=== PATIENT | female | born 1950 | race Caucasian/White ===

== ENCOUNTER → 2017-12-02 08:47 | Outpatient (CLI) | payer MEDICARE, OTHER, SELFPAY ==
--- NOTE | 2017-12-02 08:49 | DI.RAD.S_ITS ---
PROCEDURE: XR FOOT RT MIN 3V INDICATIONS: pain in right foot TECHNIQUE: 3 views of the foot were acquired. COMPARISON: None. FINDINGS: Bones: Slightly impacted, probable articulating fracture in the head of the fourth proximal phalanx. No suspicious bony lesions. Early marginal spurring at the head of the first metatarsal. Soft tissues: No tibiotalar joint effusion. Achilles tendon appears normal. IMPRESSION: Fracture fourth proximal phalanx likely articulating with the PIP joint Dictated by: Miguel Espino M.D. on 12/02/2017 at 9:17 Approved by: Miguel Espino M.D. on 12/02/2017 at 9:21
== END ==
PROVIDERS: Visit Provider Physician Assistant
DX: S92.511A Displaced fracture of proximal phalanx of right lesser toe(s), initial encounter for closed fracture (principal); M79.671 Pain in right foot
CPT/HCPCS: 73630

== ENCOUNTER → 2019-03-22 10:49 | Outpatient (CLI) | payer MEDICARE, OTHER, SELFPAY ==
[2019-03-22 12:39] LABS: Thyroid Stimulating Hormone 1.35 uIU/mL (0.47-4.68)
== END ==
PROVIDERS: PCP Family Medicine; Visit Provider Family Medicine
DX: E03.9 Hypothyroidism, unspecified (principal)
CPT/HCPCS: 36415; 84443

== ENCOUNTER → 2019-12-20 12:10 | Outpatient (CLI) | payer MEDICARE, OTHER, SELFPAY ==
[2019-12-20 12:18] LABS: Bacteria Urine None Seen; RBC Urine None Seen (0-5/HPF)
[2019-12-20 12:57] LABS: Appearance Urine UA CLEAR; Bilirubin Urine UA NEGATIVE (NEGATIVE); Color Urine UA YELLOW; Glucose Urine UA NEGATIVE (Negative); Ketones Urine UA NEGATIVE (NEGATIVE); Leukocyte Esterase Urine UA NEGATIVE (NEGATIVE); Nitrite Urine UA NEGATIVE (Negative); Occult Blood Urine UA NEGATIVE (Negative); Protein Urine UA NEGATIVE (Negative); Specific Gravity Urine UA <=1.005 (1.000-1.035); Urobilinogen Urine UA 0.2 E.U./dL (0.2)
[2019-12-20 13:05] LABS: Culture Indicated Urine Cult Not Indicated; Squamous Epithelial Cell Urine 0-1 /HPF (0-5/HPF); WBC Urine 0-1/HPF (0-5/HPF)
== END ==
PROVIDERS: PCP Family Medicine; Referring Provider Family Medicine; Visit Provider Family Medicine
DX: R31.9 Hematuria, unspecified (principal)
CPT/HCPCS: 81001

== ENCOUNTER → 2020-01-25 10:25 | Outpatient (CLI) | payer MEDICARE, OTHER, SELFPAY ==
[2020-01-25 11:26] LABS: Add Manual Diff / Slide Review NO; Basophils Absolute Auto 0 /uL (0-100); Basophils Percent Auto 1.3 % (0-2); Eosinophils Absolute Auto 100 /uL (0-450); Eosinophils Percent Auto 2.7 % (2-4); Hematocrit 35.4 % (36-46); Hemoglobin 11.8 g/dL (12.0-16.0); Lymphocytes Absolute Auto 1400 /uL (1100-4500); Lymphocytes Percent Auto 45.3 % (25-40); Mean Corpuscular HGB Conc 33.3 % (30-36); Mean Corpuscular Hemoglobin 29.1 PG (26-34); Mean Corpuscular Volume 87.4 fL (80-100); Monocytes Absolute Auto 300 /uL (0-900); Monocytes Percent Auto 9.6 % (3-14); Neutrophils Absolute Auto 1300 /uL (1500-7000); Neutrophils Percent Auto 41.1 % (50-75); Platelet Count 182 X10^3/uL (150-400); Red Blood Cell Count 4.05 X10^6/uL (4.0-5.2); Red Cell Distribution Width 13.7 % (11.6-14.8); White Blood Cell Count 3.1 X10^3/uL (4.5-11.0)
[2020-01-25 11:51] LABS: Alanine Aminotransferase 15 IU/L (<35); Albumin 4.5 g/dL (3.5-5.0); Albumin Globulin Ratio 1.3 (1.0-2.8); Alkaline Phosphatase 69 U/L (38-126); Aspartate Aminotransferase 29 IU/L (14-36); BUN Creatinine Ratio 21.9 (6-22); Bilirubin Total 0.3 mg/dL (0.2-1.3); Blood Urea Nitrogen 14 mg/dL (7-17); Calcium 9.4 mg/dL (8.4-10.2); Carbon Dioxide 32 mmol/L (22-32); Chloride 103 mmol/L (98-107); Estimated Glomerular Filt Rate > 60.0 mL/min (>60); Globulin 3.5 g/dL (1.7-4.1); Glucose 86 mg/dL (80-110); HEMOLYSIS < 15 (0-50); Potassium 4.2 mmol/L (3.4-5.1); Sodium 140 mmol/L (137-145)
[2020-01-25 14:02] LABS: TSH w/ Reflex to FT4 1.23 uIU/mL (0.47-4.68)
== END ==
PROVIDERS: PCP Family Medicine; Referring Provider Family Medicine; Visit Provider Family Medicine
DX: R10.2 Pelvic and perineal pain (principal); E03.9 Hypothyroidism, unspecified
CPT/HCPCS: 36415; 80053; 84443; 85025

== ENCOUNTER → 2020-01-27 07:43 | Outpatient (CLI) | payer MEDICARE, OTHER, SELFPAY ==
--- NOTE | 2020-01-27 07:46 | DI.US.S_ITS ---
PROCEDURE: US RENAL COMPLETE INDICATIONS: HEMATURIA TECHNIQUE: Real-time scanning was performed of the kidneys and bladder, with image documentation. COMPARISON: None. FINDINGS: Kidneys: Kidneys are normal in size. Right kidney measures 10.4 cm long; left kidney measures 11 cm long. Right renal cortical thickness is 1 cm; left renal cortical thickness is 1.2 cm. Renal cortical echotexture is normal. No nephrolithiasis. Mild bilateral hydronephrosis is seen, which mildly resolves involving the left kidney postvoid. At the inferior aspect of the left kidney, there is a nonvascular, nonshadowing hyperechoic focus seen that measures up to 8 mm, which is most likely related to a benign fat containing lesion, such as an angiomyolipoma. Bladder: Pre-void bladder volume is 413 mL. Post-void residual is 51 mL. Pre-void images demonstrate no intraluminal masses or stones. On pre-void images, both ureteral jets are noted with color Doppler interrogation. (Of note, ureteral jets may not be detectable in up to 25% of cases due to insufficient differences in specific gravity between ureteral and bladder urine). Miscellaneous: No free pelvic fluid. IMPRESSION: Mild bilateral hydronephrosis is seen, which partially resolves on the left side postvoid. There is a moderate postvoid residual, 51 cc. Incidental note is made a likely angiomyolipoma at the inferior pole of the left kidney. Dictated by: Eduard Ramirez M.D. on 01/27/2020 at 8:27 Approved by: Eduard Ramirez M.D. on 01/27/2020 at 8:29
--- NOTE | 2020-01-27 07:46 | DI.US.S_ITS ---
PROCEDURE: US PELVIC COMPLETE, transabdominal only. INDICATIONS: HEMATURIA TECHNIQUE: Real-time scanning was performed of the pelvic organs, with image documentation. Endovaginal scanning was not performed. COMPARISON: [facility], , RENAL COMPLETE, 01/27/2020, 8:10. FINDINGS: Transabdominal scanning: No pathologic free abdominal or pelvic fluid. Endovaginal scanning: Uterus: Uterus is normal in size at 6.8 x 4.8 x 3 cm. At least 2 small intramural fibroids with calcification. Right anterior 0.5 cm and 0.8 cm. The endometrium measures 8 mm in combined thickness. Trace fluid in the endometrial canal. Ovaries: Within normal limits. Blood flow seen in both ovaries. Right ovary measures 2.3 x 1.8 x 1.2 cm. Left ovary measures 2.6 x 1.4 x 1.2 cm. IMPRESSION: 1. Mildly thickened endometrium measuring 8 mm in this postmenopausal patient. Trace fluid in the endometrial canal. -Endometrial biopsy is recommended. -Transvaginal ultrasound may be helpful for further evaluation of the endometrium. 2. Small uterine fibroids. 3. Ovaries are within normal limits. Dictated by: Gonzales Vergara M.D. on 01/27/2020 at 11:03 Approved by: Gonzales Vergara M.D. on 01/27/2020 at 11:11
== END ==
PROVIDERS: PCP Family Medicine; Referring Provider Family Medicine; Visit Provider Family Medicine
DX: R10.2 Pelvic and perineal pain (principal); R31.9 Hematuria, unspecified; N13.30 Unspecified hydronephrosis
CPT/HCPCS: 76770; 76856

== ENCOUNTER → 2020-03-31 11:13 | Outpatient (CLI) | payer MEDICARE, OTHER, SELFPAY ==
[2020-03-31 12:14] LABS: COVID19 -Nasal RAPID Negative (Negative)
== END ==
PROVIDERS: PCP Family Medicine; Visit Provider Obstetrics & Gynecology
DX: Z03.818 Encounter for observation for suspected exposure to other biological agents ruled out (principal)
CPT/HCPCS: 87635

== ENCOUNTER 2020-04-03 10:06 | Day surgery (SDC) | payer MEDICARE, OTHER, SELFPAY ==
[2020-03-31 15:12] VITALS: BMI 19.8
[2020-04-03] VITALS (9 sets, daily range): BP systolic 93–137; BP diastolic 47–77; PULSE 58–72; RESP 7–16; TEMP 36–36.8; O2SAT 96–100; BMI 19.3
--- NOTE | 2020-04-03 | PATH_ITS ---
[facility] Accession Number: [id number] . 01 Material submitted: . endometrium - ENDOMETRIAL CURETTINGS AND POLYP . 02 Diagnosis: Endometrium, Curettage: Consistent with endometrial polyp. Negative for atypical hyperplasia or malignancy. [facility] 04/05/2020 1312 Local . 02 Electronically signed: . Valentin Cruz MD, PhD, Pathologist NPI- [id number] . 01 Gross description: . ENDOMETRIAL CURETTINGS AND POLYP: Received in formalin are 5 fragment(s) of glasgow, soft tissue measuring 0.7 x 0.4 x 0.4 cm to 0.4 x 0.2 x 0.1 cm submitted entirely in 1 cassette(s) /QBJ 04/04/2020 0819 Local . 02 Pathologist provided ICD-10: N84.0, N93.9 . 02 CPT . 418539 Performed at: 01 [facility] [address] [facility], [place], [place] [id number] MD Cornell Hylton MD Phone: [phone] Performed at: 02 [facility] [place] [address] [place], [place] [id number] MD Marianna Ricardo MD Phone: [phone]
[2020-04-03] MEDS: LACTATED RINGERS 1,000 ML 100 ML IV (10:21)
--- NOTE | 2020-04-03 11:25 | P.HP_ITS ---
History of Present Illness History of Present Illness Date Patient Seen: 04/03/20 Time Patient Seen: 11:25 Chief complaint: [facility] [place] Narrative: Patient is a 69 year 4 para 4 with postmenopausal bleeding and a thickened endometrial lining Patient has a history of fibroids. She is here for a D&C hysteroscopy with possible resection of fibroids or polyps. Patient History Medical History (Updated 02/23/20 @ 18:52 by Elizabeth Pack MD) Acne Chicken pox Fractures Herpes (~1985) Hypothyroidism (~1977) Irritable bowel syndrome (~1982) Measles Rheumatoid arthritis (~2011) Tinnitus Vision disorder Family & Social History Family History Father No problems noted. Mother No problems noted. Grandfather No problems noted. Grandmother No problems noted. Social History: household members spouse lives independently Yes Tobacco & Substance use: Smoking Status Never smoker alcohol intake current alcohol intake frequency holiday/special occasion Substance Use Type does not use Meds Home Medications and Allergies Home Medications Medication Instructions Recorded Confirmed Type hydroxychloroquine 200 mg tablet 200 mg PO BIDCC #180 tab 07/19/19 04/03/20 Rx levothyroxine 125 mcg tablet 125 mcg PO QAM #90 tab 03/29/20 04/03/20 Rx Allergies Allergy/AdvReac Type Severity Reaction Status Date / Time codeine [CODEINE] AdvReac Unknown nausea, Verified 04/03/20 10:36 fainted Exam Vital Signs (past 8 hours): - 04/03/20 10:28 Temperature 97.2 F L Pulse Rate 72 Respiratory Rate 14 Blood Pressure 128/70 Pulse Oximetry 100 Oxygen Delivery Method Room Air Narrative Exam Narrative: HEENT: No thyromegaly, no anterior cervical or supraclavicular lymphadenopathy. Lungs:Clear to auscultation bilaterally, no wheezes. Cardiovascular: Regular rate and rhythm, no murmurs, rubs, or gallops. Abdomen: No scars. No hepatosplenomegaly. No masses palpable. External genitalia: Normal Vagina: Normal Cervix: Normal Bimanual exam: 7 Week size anteverted uterus. Mobile. No adnexal masses or tenderness Rectal: No masses. Assessment & Plan Assessment & Plan narrative: Assessment: 69-year-old 4 para 4 with postmenopausal bleeding and a thickened endometrial lining History of fibroids Plan: D&C hysteroscopy with possible resection of fibroids The risks, benefits, and alternatives to the procedure were explained to the patient. The risks including bleeding, infection, and uterine perforation. She understands these risks and agrees to proceed. A full par Q was held and consent form was signed. COVID-19 COVID-19 status: Negative Result date/Date tested (Pos, Neg/Pending): 03/31/20 Time Spent With Patient Time with patient: less than 15 minutes
--- NOTE | 2020-04-03 11:28 | PM.PREOP ---
Pre-operative Note COVID-19 COVID-19 status: Negative Result date/Date tested (Pos, Neg/Pending): 03/31/20 Interval Note History & Physical reviewed/Exam performed by Physician: Yes Changes to H&P: No H&P completed within 30 days and has changed as indicated here:: 04/03/2020
--- NOTE | 2020-04-03 11:54 | SUR.OPER ---
Lithotomy on padded OR bed, head on pillow, arms secured on padded arm boards at <90 degrees abduction. Legs secured in padded yellow fins stirrups.
--- NOTE | 2020-04-03 12:04 | PM.GYNOP.1 ---
Operative Date/Time/Diagnoses Date of procedure: 04/03/20 Time of procedure: 12:04 Pre-op diagnosis: Postmenopausal bleeding Endometrial hyperplasia Post-op diagnosis: same Procedure & Clinicians Procedure: Procedures Operation Date: 04/03/20 11:15 Actual Procedures Side Surgeon p Hysteroscopy D&C resection of polyp Elizabeth Pack MD Indications: Postmenopausal bleeding Endometrial hyperplasia Surgeon: Elizabeth Pack Anesthesia Type: General (LMA) Operative Notes Findings: Six week size anteverted uterus Both fallopian tube ostia observed Flat polyp at the fundal/anterior uterus Closure Type: not applicable Specimen(s): endometrial curettings and endometrial polyp Estimated blood loss (mL): 5 Blood products transfused: none Procedure in detail: After informed consent was obtained, the patient was taken to the operating room where she was placed in the dorsal supine position. After adequate LMA general anesthesia was achieved, she was placed in the dorsal lithotomy position, and prepped and draped in the usual sterile fashion. A time-out was performed. A bivalve speculum was placed into the vagina and in the anterior lip of the cervix was grasped with a single-tooth tenaculum. The cervical os was sequentially dilated to the # 8 Hegar dilator. The hysteroscope passed easily into the endometrial cavity. Both fallopian tube ostia were observed. There was a flat polyp in the anterior/fundal portion of the uterus. The hysteroscope was removed. The cervical os was dilated to the # 9 Hegar dilator. The resectoscope passed easily into the endometrial cavity. With 3 passes with the loop with settings at 60 cut and 40 cautery, the polyp was excised. Sharp curettage was performed yielding moderate amount of endometrial curettings. The instruments were removed from the uterus. The single-tooth tenaculum was removed from the anterior lip of the cervix. The bivalve speculum was removed from the vagina. Sponge, lap, and instrument counts were correct x2. The patient tolerated the procedure well, and was taken to PACU in stable condition Complications: none Post-operative Condition: stable Disposition: PACU Plan for aftercare: Home after recovery
== END 2020-04-03 13:43 | disposition home or self-care (01) ==
PROVIDERS: PCP Family Medicine; Referring Provider Family Medicine; Visit Provider Obstetrics & Gynecology
PROC: 0UDB8ZZ Extraction of Endometrium, Via Natural or Artificial Opening Endoscopic (ICD-10-PCS; CPT 58558; principal; 2020-04-03 11:15)
DX: N84.0 Polyp of corpus uteri (principal); E03.9 Hypothyroidism, unspecified; M06.9 Rheumatoid arthritis, unspecified
CPT/HCPCS: 58558; J1100; J1885; J2405; J2704; J3010

== ENCOUNTER → 2021-08-28 08:12 | Outpatient (CLI) | payer MEDICARE, OTHER, SELFPAY ==
[2021-08-28 09:56] LABS: Add Manual Diff / Slide Review NO; Basophils Absolute Auto 0 /uL (0-100); Basophils Percent Auto 1.2 % (0-2); Eosinophils Absolute Auto 100 /uL (0-450); Eosinophils Percent Auto 3.1 % (2-4); Hematocrit 35.3 % (36-46); Hemoglobin 11.9 g/dL (12.0-16.0); Lymphocytes Absolute Auto 1500 /uL (1100-4500); Lymphocytes Percent Auto 46.9 % (25-40); Mean Corpuscular HGB Conc 33.8 % (30-36); Mean Corpuscular Hemoglobin 28.9 PG (26-34); Mean Corpuscular Volume 85.5 fL (80-100); Monocytes Absolute Auto 300 /uL (0-900); Monocytes Percent Auto 9.3 % (3-14); Neutrophils Absolute Auto 1300 /uL (1500-7000); Neutrophils Percent Auto 39.5 % (50-75); Platelet Count 187 X10^3/uL (150-400); Red Blood Cell Count 4.13 X10^6/uL (4.0-5.2); Red Cell Distribution Width 13.9 % (11.6-14.8); White Blood Cell Count 3.2 X10^3/uL (4.5-11.0)
[2021-08-28 10:31] LABS: Alanine Aminotransferase 18 IU/L (<35); Albumin 4.4 g/dL (3.5-5.0); Albumin Globulin Ratio 1.4 (1.0-2.8); Alkaline Phosphatase 68 U/L (38-126); Aspartate Aminotransferase 30 IU/L (14-36); BUN Creatinine Ratio 22.9 (6-22); Bilirubin Total 0.2 mg/dL (0.2-1.3); Blood Urea Nitrogen 16 mg/dL (7-17); Calcium 9.4 mg/dL (8.4-10.2); Carbon Dioxide 32 mmol/L (22-32); Chloride 104 mmol/L (98-107); Estimated Glomerular Filt Rate > 60 mL/min (>60); Globulin 3.1 g/dL (1.7-4.1); Glucose 88 mg/dL (80-110); HEMOLYSIS < 15 (0-50); Potassium 4.5 mmol/L (3.4-5.1); Sodium 141 mmol/L (137-145); Total Protein 7.5 g/dL (6.3-8.2)
[2021-08-28 11:07] LABS: TSH w/ Reflex to FT4 0.57 uIU/mL (0.47-4.68)
== END ==
PROVIDERS: PCP Family Medicine; Referring Provider Family Medicine; Visit Provider Family Medicine
DX: E03.9 Hypothyroidism, unspecified (principal); M06.9 Rheumatoid arthritis, unspecified
CPT/HCPCS: 36415; 80053; 84443; 85025

== ENCOUNTER 2021-11-23 20:13 | Emergency (ER) | payer MEDICARE, OTHER, SELFPAY ==
[2021-11-23 20:16] VITALS: BP 131/67; PULSE 65; RESP 16; TEMP 35.9; O2SAT 100; BMI 19.7
--- NOTE | 2021-11-23 22:36 | ED.WOUNDLAC ---
HPI - Wound/Laceration General Chief Complaint: Wound/Laceration Stated Complaint: cut finger with garden sally Time Seen by Provider: 11/23/21 22:23 Mode of arrival: Family Vehicle History of Present Illness HPI narrative: 71-year-old female nonsmoker with history of hypothyroid presents with an accidental laceration to the tip of her left middle finger a few hours ago. It is not significantly painful and bled only a little bit but is rather deep. There is no involvement of the nail. She denies any numbness or tingling. Her tetanus is out-of-date will need to be updated. She is otherwise well and free of complaint Related Data Previous Rx's Medication Instructions Recorded acyclovir 400 mg tablet 400 mg PO BID #10 tabs 04/24/20 hydroxychloroquine 200 mg tablet 200 mg PO BIDCC #180 tabs 08/11/20 levothyroxine 125 mcg tablet 125 mcg PO QAM #90 tabs 09/03/21 Allergies Allergy/AdvReac Type Severity Reaction Status Date / Time codeine [CODEINE] AdvReac Unknown nausea, Verified 11/23/21 20:23 fainted Review of Systems Review of Systems Narrative: GENERAL: Denies chills, fatigue, malaise, fever, sweats. HEENT: Denies sinus pain, ear pain, sore throat, difficulty swallowing, dizziness. RESPIRATORY: Denies dyspnea, cough, wheezing, hemoptysis, sputum. CARDIOVASCULAR: Denies chest pain, palpitations, orthopnea, edema, GASTROINTESTINAL: Denies nausea, vomiting, abdominal pain, diarrhea, constipation, melena. : Denies dysuria, frequency, incontinence, hematuria, urinary retention. MUSCULOSKELETAL: d see HPI SKIN: Denies rash, skin lesions, or other NEUROLOGIC: Denies weakness, headache, numbness, change in speech, confusion, seizures, incoordination. PSYCHIATRIC: No concerning psychosocial issues. 12 point review of systems is negative except for those stated above Patient History Medical History (Updated 11/23/21 @ 23:24 by Andrea Zuluaga DO) Acne Chicken pox Fractures Herpes (~1985) Hypothyroidism (~1977) Irritable bowel syndrome (~1982) Measles Rheumatoid arthritis (~2011) Tinnitus Vision disorder Family History Father No problems noted. Mother No problems noted. Grandfather No problems noted. Grandmother No problems noted. Social History marital status: number of children: 4 household members: spouse lives independently: Yes education level: college occupational status: other (retired) Previous occupational history: Teacher Smoking Status: Never smoker alcohol intake: current substance use type: does not use Smoking Status: Never smoker alcohol intake frequency: holidays/special occasions only Substance Use Type: does not use Exam Narrative Exam Narrative: GEN: AOx3 and in mild distress EYES: Pupils are equal, round, and reactive to light and accommodation. Extraoccular muscles are intact bilaterally. There is no subconjunctival hemorrhage or exudate. CHEST: Lungs are clear to auscultation bilaterally and free of wheezes, rales, or rhonchi. Heart rate is regular rhythm, there are no murmurs, clicks, rubs, or gallops. There is no chest wall tenderness. ABD: Abdomen is soft and nontender. There is no guarding or rebound. Bowel sounds are normal in all 4 quadrants. There is no mass or organomegaly. EXT: 1 cm crescent-shaped laceration on the tip of the left middle finger, no nail, nail bed or nail fold involvement, no bone exposure, no evidence of foreign body Full painless ROM of all extremities with no loss of sensation or strength. SKIN: Warm, pink, and dry. No erythema or rash Initial Vital Signs Initial Vital Signs: Vital Signs Temperature 96.6 F L 11/23/21 20:16 Pulse Rate 65 11/23/21 20:16 Respiratory Rate 16 11/23/21 20:16 Blood Pressure 131/67 11/23/21 20:16 Pulse Oximetry 100 11/23/21 20:16 Oxygen Delivery Method 11/23/21 20:16 Procedures Laceration Repair Laceration 1: Site: hand Side (If applicable): left Size (cm): 1.5 Description: flap Depth: simple, single layer Local Anesthetic: lidocaine 1% Amount of anesthesia used (mL): 3 Pre-repair: wound explored and cleansed with chlorhexadine Skin layer closed with: nylon Skin layer suture size: 4-0 Number of sutures: 3 Technique: simple, interrupted Course Orders Ordered: Discontinued Medications Lidocaine HCl (Lidocaine 2% Inj Mdv) 1 ml SUBCUT NOW ONE Stop: 11/23/21 23:22 Last Admin: 11/24/21 00:00 Dose: 1 ml Documented By: AILYN Vital Signs Vital signs: Vital Signs - 8 hr 11/23/21 20:16 Temperature 96.6 F L Pulse Rate 65 Respiratory Rate 16 Blood Pressure 131/67 Pulse Oximetry 100 Oxygen Delivery Method Room Air Discharge Plan Departure Patient Disposition: Home Clinical Impression: Laceration of finger of left hand Instructions: DI for Laceration Repair Activity Restrictions/Additional Instructions: *You have been diagnosed with [left middle finger laceration with repair] *What to do: *Please continue to take your regular medications as directed. [ ] New medication prescriptions sent to your pharmacy: [ ] [ ] New medication written as a paper prescription [ ] No new medications given * Please keep the wound clean and dry to the best of your ability. Please monitor for signs of infection such as redness to the skin or increasing pain. Have the sutures/amie removed by your doctor in about 7 days. If you are unable to get into your doctor, we would be happy to remove the sutures/amie in that same timeframe. *If you do not have a primary care provider please contact the [facility] Resource line at [phone]. They will ask some questions about your medical history and help get you set up with a doctor in the community. *Return to Emergency Department if you should have any new, worsening or concerning symptoms, such as [fever greater than 101 F, shaking chills, worsening pain, persistent vomiting or other bothersome symptoms] Prescriptions: No Action hydroxychloroquine 200 mg tablet 200 mg PO BIDCC Qty: 180 1RF levothyroxine 125 mcg tablet 125 mcg PO QAM Qty: 90 3RF acyclovir 400 mg tablet 400 mg PO BID Qty: 10 3RF Referrals: Mimi Arce DO [Primary Care Provider] - Visit Report Forms: Patient Portal/API
[2021-11-24] MEDS: LIDOCAINE 2% INJ MDV 1 ML SUBCUT
--- NOTE | 2021-11-24 00:46 | PC.NURSE ---
Assessment deferred to provider.
== END 2021-11-24 00:12 | disposition home or self-care (01) ==
PROVIDERS: Emergency Provider Emergency Medicine; PCP Family Medicine
DX: S61.313A Laceration without foreign body of left middle finger with damage to nail, initial encounter (principal); W27.1XXA Contact with garden tool, initial encounter
CPT/HCPCS: 12001; 99281; 99283

== ENCOUNTER 2021-12-03 07:37 | Emergency (ER) | payer MEDICARE, OTHER, SELFPAY ==
[2021-12-03 07:43] VITALS: BP 143/64; PULSE 83; O2SAT 98
[2021-12-03 07:45] VITALS: BP 143/64; PULSE 81; RESP 18; TEMP 36.6; O2SAT 100; BMI 19.7
[2021-12-03 07:55] LABS: Add Manual Diff / Slide Review NO; Basophils Absolute Auto 100 /uL (0-100); Basophils Percent Auto 0.7 % (0-2); Eosinophils Absolute Auto 100 /uL (0-450); Eosinophils Percent Auto 0.9 % (2-4); Hematocrit 33.5 % (36-46); Hemoglobin 11.4 g/dL (12.0-16.0); Lymphocytes Absolute Auto 1500 /uL (1100-4500); Lymphocytes Percent Auto 18.7 % (25-40); Mean Corpuscular Volume 85.4 fL (80-100); Monocytes Absolute Auto 800 /uL (0-900); Monocytes Percent Auto 9.4 % (3-14); Neutrophils Absolute Auto 5800 /uL (1500-7000); Neutrophils Percent Auto 70.3 % (50-75); Platelet Count 217 X10^3/uL (150-400); Red Blood Cell Count 3.92 X10^6/uL (4.0-5.2); Red Cell Distribution Width 13.5 % (11.6-14.8); White Blood Cell Count 8.3 X10^3/uL (4.5-11.0)
[2021-12-03 08:00] VITALS: PULSE 74; O2SAT 100
--- NOTE | 2021-12-03 08:04 | DI.RAD.S_ITS ---
PROCEDURE: XR ABDOMEN MIN 2V INDICATIONS: abdominal pain TECHNIQUE: 2 views of the abdomen were acquired. COMPARISON: None. FINDINGS: Surgical changes and devices: None. Bowel: No pneumoperitoneum. The bowel gas pattern is normal. Soft tissues: No masses; visualized solid organ contours appear normal in size. No suspicious abdominal calcifications. Bones: No suspicious bony abnormalities. IMPRESSION: No acute intra-abdominal findings. Dictated by: Shilpi Baker M.D. on 12/03/2021 at 8:37 Approved by: Shilpi Baker M.D. on 12/03/2021 at 8:48
[2021-12-03 08:14] LABS: Alanine Aminotransferase 14 IU/L (<35); Albumin 4.7 g/dL (3.5-5.0); Albumin Globulin Ratio 1.1 (1.0-2.8); Alkaline Phosphatase 74 U/L (38-126); Aspartate Aminotransferase 28 IU/L (14-36); BUN Creatinine Ratio 22.7 (6-22); Bilirubin Total 0.7 mg/dL (0.2-1.3); Blood Urea Nitrogen 15 mg/dL (7-17); Calcium 9.1 mg/dL (8.4-10.2); Carbon Dioxide 27 mmol/L (22-32); Chloride 101 mmol/L (98-107); Estimated Glomerular Filt Rate > 60 mL/min (>60); Globulin 4.1 g/dL (1.7-4.1); Glucose 102 mg/dL (80-110); HEMOLYSIS < 15 (0-50); Lipase 75 U/L (23-300); Potassium 3.9 mmol/L (3.4-5.1); Sodium 138 mmol/L (137-145); Total Protein 8.8 g/dL (6.3-8.2)
--- NOTE | 2021-12-03 08:25 | ED.ABDPAIN ---
HPI - Abdominal Pain General Chief Complaint: Abdominal Pain Stated Complaint: abd pain x 3 days - sent by [facility] Time Seen by Provider: 12/03/21 08:04 Source: patient and family (Spouse) Mode of arrival: Ambulatory History of Present Illness HPI narrative: This is a 71-year-old female with history mild rheumatoid arthritis, hypothyroidism and IBS who presents with complaint of abdominal pain for the past 3 days. Patient states lower abdominal pain. It seems spasmodic and crampy particularly when gas or stool feels like it is moving through. She states when she passes gas or tries to have a bowel movement quite painful including at the rectal area, she states that she is only had a small amount of phlegmy output there has been no black or blood. She has not actually had a bowel movement in the last 4 days. She states this is atypical and not similar to her usual IBS pain. Patient has not really taken anything orally for pain. She denies fevers or chills. No nausea or vomiting. She describes pain all his lower abdomen although she is had some mild discomfort on the right flank. She states she felt like she did fully empty her bladder overnight but does not feel that way currently. She denies dysuria urgency or frequency otherwise. No chest pain, no shortness of breath. No fevers or chills. Patient denies any other changes. She had a uterine fibroid removed in the past but denies other surgeries. States codeine makes her nauseated. No tobacco, alcohol or illicit. Her primary care is Dr. Arce. She is accompanied by her today. Patient also notes that she had sutures placed in the distal finger tip on 11/23/2021. Related Data Previous Rx's Medication Instructions Recorded acyclovir 400 mg tablet 400 mg PO BID #10 tabs 04/24/20 hydroxychloroquine 200 mg tablet 200 mg PO BIDCC #180 tabs 08/11/20 levothyroxine 125 mcg tablet 125 mcg PO QAM #90 tabs 09/03/21 amoxicillin 875 mg-potassium 1 tab PO BID #20 tabs 12/03/21 clavulanate 125 mg tablet Allergies Allergy/AdvReac Type Severity Reaction Status Date / Time codeine [CODEINE] AdvReac Unknown nausea, Verified 12/03/21 07:45 fainted Review of Systems Review of Systems ROS Unobtainable: All systems reviewed & are unremarkable except as noted in HPI and below Patient History Medical History (Updated 12/03/21 @ 10:07 by Bia Linder DO) Acne Chicken pox Fractures Herpes (~1985) Hypothyroidism (~1977) Irritable bowel syndrome (~1982) Measles Rheumatoid arthritis (~2011) Tinnitus Vision disorder Family History Father No problems noted. Mother No problems noted. Grandfather No problems noted. Grandmother No problems noted. Social History marital status: number of children: 4 household members: spouse lives independently: Yes education level: college occupational status: other (retired) Previous occupational history: Teacher Smoking Status: Never smoker alcohol intake: current substance use type: does not use Smoking Status: Never smoker alcohol intake frequency: holidays/special occasions only Substance Use Type: does not use Exam Initial Vital Signs Initial Vital Signs: Vital Signs Pulse Rate 83 12/03/21 07:43 Blood Pressure 143/64 H 12/03/21 07:43 Pulse Oximetry 98 12/03/21 07:43 Course Orders Ordered: Discontinued Medications Ketorolac Tromethamine (Ketorolac 30 Mg/Ml Vial) 15 mg IV NOW ONE Stop: 12/03/21 10:08 Last Admin: 12/03/21 10:21 Dose: 15 mg Documented By: LEIDA Vital Signs Vital signs: Vital Signs - 8 hr 12/03/21 07:45 12/03/21 07:43 12/03/21 07:43 Temperature 97.8 F Pulse Rate 81 83 Respiratory Rate 18 Blood Pressure 143/64 H 143/64 H Pulse Oximetry 100 98 Oxygen Delivery Method Room Air 12/03/21 08:00 12/03/21 09:00 Temperature Pulse Rate 74 77 Respiratory Rate Blood Pressure Pulse Oximetry 100 100 Oxygen Delivery Method MDM - Abdominal Pain Lab Data Result diagrams: 12/03/21 07:40 12/03/21 07:40 Labs: Lab Results 12/03/21 12/03/21 12/03/21 Range/Units 07:40 07:40 09:55 WBC 8.3 (4.5-11.0) X10^3/uL RBC 3.92 L (4.0-5.2) X10^6/uL Hgb 11.4 L (12.0-16.0) g/dL Hct 33.5 L (36-46) % MCV 85.4 (80-100) fL MCH 29.0 (26-34) PG MCHC 34.0 (30-36) % RDW 13.5 (11.6-14.8) % Plt Count 217 (150-400) X10^3/uL Neut % (Auto) 70.3 (50-75) % Lymph % (Auto) 18.7 L (25-40) % Lamb % (Auto) 9.4 (3-14) % Eos % (Auto) 0.9 L (2-4) % Baso % (Auto) 0.7 (0-2) % Neut # (Auto) 5800 (9353-1562) /uL Lymph # (Auto) 1500 (0323-5425) /uL Lamb # (Auto) 800 (0-900) /uL Eos # (Auto) 100 (0-450) /uL Baso # (Auto) 100 (0-100) /uL Sodium 138 (137-145) mmol/L Potassium 3.9 (3.4-5.1) mmol/L Chloride 101 (98-107) mmol/L Carbon Dioxide 27 (22-32) mmol/L BUN 15 (7-17) mg/dL Creatinine 0.66 (0.52-1.04) mg/dL Estimated GFR > 60 (>60) mL/min BUN/Creatinine Ratio 22.7 H (6-22) Glucose 102 (80-110) mg/dL Calcium 9.1 (8.4-10.2) mg/dL Total Bilirubin 0.7 (0.2-1.3) mg/dL AST 28 (14-36) IU/L ALT 14 (<35) IU/L Alkaline Phosphatase 74 (38-126) U/L Total Protein 8.8 H (6.3-8.2) g/dL Albumin 4.7 (3.5-5.0) g/dL Globulin 4.1 (1.7-4.1) g/dL Albumin/Globulin Ratio 1.1 (1.0-2.8) Lipase 75 (23-300) U/L Urine RBC 0-1/hpf (0-5/HPF) Urine WBC None seen (0-5/HPF) Ur Squamous Epith Cells None seen (0-5/HPF) Urine Bacteria None seen (None) Ur Culture Indicated? Cult not indicated Point of care testing: Urine Dip Bedside Urine Glucose Negative Bedside Urine Bilirubin - Negative Bedside Urine Ketone +/- 5 Urine Specific [place] 1.015 Bedside Urine Occult Blood +/- Bedside Urine pH 6.0 Bedside Urine Protein - Negative Bedside Urine Urobilinogen - Negative Bedside Urine Nitrite - Negative Bedside Urine Leukocytes - Negative Esterase Imaging Data CT scan - abdomen/pelvis: Radiologist's Impression: [address] [address] [address] Scan Report Signed Patient: Destiny Amos MR#: [id number] : 1950 Acct:[id number] Age/Sex: 71 / F Date of Service: 12/03/21 Loc: ED Accession Number: [id number] ?? Procedure: CT abdomen pelvis w con Ordering Provider: Bia Linder D.O. PROCEDURE:? CT ABDOMEN PELVIS W CON ? INDICATIONS:? lower abd pain, x 3 days, no BM b/l and rectal ? TECHNIQUE:? After the administration of oral and IV contrast, axial sections were acquired from the lung bases to the pubic symphysis.? Coronal and sagittal reformats were performed.? For radiation dose reduction, the following was used:? automated exposure control, adjustment of mA and/or kV according to patient size. ? COMPARISON:? [facility], CR, XR ABDOMEN MIN 2V, 12/03/2021, 8:08. ? FINDINGS:? Image quality:? Excellent.? ? Lung bases:? There is a 3 mm nodule in the left lower lobe (series 5, image 9).? ? Heart:? No significant findings. ? ? ABDOMEN: Liver:? Liver is normal in size.? Multiple hepatic hypodensities are most likely cysts or hemangiomas.? ? Gallbladder:? Unremarkable.? ? Biliary ducts:? Unremarkable.? ? Pancreas:? Unremarkable.? ? Spleen:? Unremarkable.? ? Adrenal Glands:? There is a 0.7 cm left adrenal nodule.? ? Kidneys and Ureters:? Unremarkable.? ? ? Stomach and Bowel:? Stomach, small bowel loops, and colon are normal in caliber.? There is a large amount of stool in colon.? There are scattered colonic diverticula in sigmoid colon.? There is focal thickening of sigmoid colon and pericolonic stranding, compatible with acute diverticulitis. Peritoneum:? A small amount of free fluid is present.? No free air.? ? Ventral Wall: ? No hernia.? Abdominal Nodes:? No retroperitoneal or mesenteric adenopathy by size criteria.? Vessels:? Aorta and inferior vena cava are normal in size.? ? PELVIS: Pelvic Organs:? Uterus is normal.? Ovaries are not well seen.? ? Bladder:? Unremarkable.? ? Pelvic Nodes: No enlarged lymph nodes.? Miscellaneous: No inguinal hernias are seen. ? ? ? Bones:? Mild scoliosis. ? Moderate degenerative changes in lumbar spine. ? ? IMPRESSION:? ? 1. Sigmoid diverticulosis.? There is focal colonic wall thickening and stranding in sigmoid colon consistent with acute diverticulitis.? A differential diagnosis is segmental colitis.? After adequate treatment of acute illnesses, please consider colonoscopy as colon cancer could have a similar CT appearance. ? 2. A small amount of free fluid is present.? No organized fluid collections to suggest abscess.? No free air. ? 3. A large amount of stool in colon. ? 4. Multiple hepatic hypodensities are present, most likely hepatic cysts.? Some lesions are too small to further characterize, therefore, indeterminate.? ? 5. A 0.7 cm left adrenal nodule.? Suggesting adrenal protocol CT or MRI for follow-up. ? ? ? Dictated by: Luis Shields M.D. on 12/03/2021 at 9:36 ? ? Approved by: Luis Shields M.D. on 12/03/2021 at 9:43 MDM Narrative Medical decision making narrative: 71-year-old female with several days of abdominal pain, mucousy output but minimal stool, no nausea vomiting or fevers and nontender on exam. Labs CT findings did not show clear change discussed with patient would like to obtain CT she is open to this risks versus benefits discussed and on imaging shows changes consistent with possible diverticulitis. Discussed with patient plan to cover her with oral antibiotics. Patient has not had a colonoscopy in the last 4 years so discussed after her symptoms have improved in the next 1-2 months would recommend follow-up for colonoscopy to rule out malignancy. We discussed return precautions, expectations for course of her care and all questions answered. Discharge Plan Departure Patient Disposition: Home Clinical Impression: Diverticulitis Instructions: DI for Diverticulitis Activity Restrictions/Additional Instructions: Follow-up next week if her symptoms are not significantly resolved or improving. I would recommend colonoscopy 1-2 months for recheck after you have been completely treated to evaluate the inside of your colon. Referral is included below to follow up with General surgery or you can follow-up with gastroenterology. Take antibiotics until completely gone. Prescription sent to [facility] in [place]. Please return for fevers, increasing abdominal, pelvic or back pain, black or bloody stools, persistent vomiting, inability to have a bowel movement or other new or concerning symptoms. Prescriptions: New amoxicillin-pot clavulanate 875-125 mg tablet 1 tab PO BID Qty: 20 0RF No Action hydroxychloroquine 200 mg tablet 200 mg PO BIDCC Qty: 180 1RF levothyroxine 125 mcg tablet 125 mcg PO QAM Qty: 90 3RF acyclovir 400 mg tablet 400 mg PO BID Qty: 10 3RF Referrals: Kevon Avila MD [Physician] - Mimi Arce DO [Primary Care Provider] - Visit Report Forms: Patient Portal/API
--- NOTE | 2021-12-03 08:50 | DI.CT.S_ITS ---
PROCEDURE: CT ABDOMEN PELVIS W CON INDICATIONS: lower abd pain, x 3 days, no BM b/l and rectal TECHNIQUE: After the administration of oral and IV contrast, axial sections were acquired from the lung bases to the pubic symphysis. Coronal and sagittal reformats were performed. For radiation dose reduction, the following was used: automated exposure control, adjustment of mA and/or kV according to patient size. COMPARISON: [facility], CR, XR ABDOMEN MIN 2V, 12/03/2021, 8:08. FINDINGS: Image quality: Excellent. Lung bases: There is a 3 mm nodule in the left lower lobe (series 5, image 9). Heart: No significant findings. ABDOMEN: Liver: Liver is normal in size. Multiple hepatic hypodensities are most likely cysts or hemangiomas. Gallbladder: Unremarkable. Biliary ducts: Unremarkable. Pancreas: Unremarkable. Spleen: Unremarkable. Adrenal Glands: There is a 0.7 cm left adrenal nodule. Kidneys and Ureters: Unremarkable. Stomach and Bowel: Stomach, small bowel loops, and colon are normal in caliber. There is a large amount of stool in colon. There are scattered colonic diverticula in sigmoid colon. There is focal thickening of sigmoid colon and pericolonic stranding, compatible with acute diverticulitis. Peritoneum: A small amount of free fluid is present. No free air. Ventral Wall: No hernia. Abdominal Nodes: No retroperitoneal or mesenteric adenopathy by size criteria. Vessels: Aorta and inferior vena cava are normal in size. PELVIS: Pelvic Organs: Uterus is normal. Ovaries are not well seen. Bladder: Unremarkable. Pelvic Nodes: No enlarged lymph nodes. Miscellaneous: No inguinal hernias are seen. Bones: Mild scoliosis. Moderate degenerative changes in lumbar spine. IMPRESSION: 1. Sigmoid diverticulosis. There is focal colonic wall thickening and stranding in sigmoid colon consistent with acute diverticulitis. A differential diagnosis is segmental colitis. After adequate treatment of acute illnesses, please consider colonoscopy as colon cancer could have a similar CT appearance. 2. A small amount of free fluid is present. No organized fluid collections to suggest abscess. No free air. 3. A large amount of stool in colon. 4. Multiple hepatic hypodensities are present, most likely hepatic cysts. Some lesions are too small to further characterize, therefore, indeterminate. 5. A 0.7 cm left adrenal nodule. Suggesting adrenal protocol CT or MRI for follow-up. Dictated by: Luis Shields M.D. on 12/03/2021 at 9:36 Approved by: Luis Shields M.D. on 12/03/2021 at 9:43
[2021-12-03 09:00] VITALS: PULSE 77; O2SAT 100
[2021-12-03 09:09] VITALS: PULSE 92; RESP 18; O2SAT 93
[2021-12-03] MEDS: KETOROLAC 30 MG/ML VIAL 15 MG IV (10:21)
[2021-12-03 10:24] VITALS: BP 131/62
[2021-12-03 10:29] LABS: Bacteria Urine None Seen; Culture Indicated Urine Cult Not Indicated; RBC Urine 0-1/HPF (0-5/HPF); Squamous Epithelial Cell Urine None Seen (0-5/HPF); WBC Urine None Seen (0-5/HPF)
== END 2021-12-03 10:39 | disposition home or self-care (01) ==
PROVIDERS: Emergency Provider Emergency Medicine; PCP Family Medicine
DX: K57.92 Diverticulitis of intestine, part unspecified, without perforation or abscess without bleeding (principal)
CPT/HCPCS: 36415; 74019; 74177; 80053; 81003; 81015; 83690; 85025; 96374; 99284; J1885; Q9967

== ENCOUNTER 2021-12-17 23:07 | Emergency (ER) | payer MEDICARE, OTHER, SELFPAY ==
[2021-12-17 23:27] VITALS: BP 173/84; PULSE 79; RESP 22; TEMP 36.4; O2SAT 98
[2021-12-17 23:33] VITALS: PULSE 67; O2SAT 100
[2021-12-17 23:34] VITALS: BP 152/72; PULSE 64; O2SAT 100
[2021-12-17 23:38] LABS: Add Manual Diff / Slide Review NO; Basophils Absolute Auto 100 /uL (0-100); Basophils Percent Auto 1.1 % (0-2); Eosinophils Absolute Auto 100 /uL (0-450); Eosinophils Percent Auto 1.5 % (2-4); Hematocrit 33.7 % (36-46); Hemoglobin 11.4 g/dL (12.0-16.0); Lymphocytes Absolute Auto 3600 /uL (1100-4500); Lymphocytes Percent Auto 54.8 % (25-40); Mean Corpuscular HGB Conc 33.8 % (30-36); Mean Corpuscular Hemoglobin 28.4 PG (26-34); Mean Corpuscular Volume 84.2 fL (80-100); Monocytes Absolute Auto 600 /uL (0-900); Monocytes Percent Auto 8.5 % (3-14); Neutrophils Absolute Auto 2300 /uL (1500-7000); Neutrophils Percent Auto 34.1 % (50-75); Platelet Count 303 X10^3/uL (150-400); Red Cell Distribution Width 13.5 % (11.6-14.8); White Blood Cell Count 6.6 X10^3/uL (4.5-11.0)
[2021-12-17 23:39] LABS: Alanine Aminotransferase 19 IU/L (<35); Albumin 4.6 g/dL (3.5-5.0); Albumin Globulin Ratio 1.2 (1.0-2.8); Alkaline Phosphatase 86 U/L (38-126); Aspartate Aminotransferase 28 IU/L (14-36); BUN Creatinine Ratio 26.5 (6-22); Bilirubin Total 0.2 mg/dL (0.2-1.3); Blood Urea Nitrogen 18 mg/dL (7-17); Carbon Dioxide 29 mmol/L (22-32); Chloride 99 mmol/L (98-107); Estimated Glomerular Filt Rate > 60 mL/min (>60); Glucose 112 mg/dL (80-110); HEMOLYSIS < 15 (0-50); Lipase 97 U/L (23-300); Potassium 3.5 mmol/L (3.4-5.1); Sodium 139 mmol/L (137-145); Total Protein 8.6 g/dL (6.3-8.2)
[2021-12-18] VITALS: BP 133/79; PULSE 70; O2SAT 97
--- NOTE | 2021-12-18 00:26 | ED_ITS ---
HPI - General Adult General Chief complaint: Abdominal Pain Stated complaint: N/V dizzy, chills, Abd pain Time Seen by Provider: 12/18/21 00:02 Source: patient Mode of arrival: Ambulatory History of Present Illness HPI narrative: 71-year-old woman U of rheumatoid arthritis irritable bowel syndrome, hypothyroidism recently diagnosed with diverticulitis and completed 10 days of Augmentin. She notes that she has area 2 resolved. She did not off the Augmentin now for 5 days and still has not had much of an appetite and is concerned that she is still losing weight because she is unable to eat much food without nausea. She states that she was feeling somewhat better today she went to bed this evening and began having severe stomach cramps. She does have irritable bowel syndrome and is familiar with abdominal cramps states this was worse associated with increased nausea, cold chills and pain significant enough that she was having trouble standing up straight. Shortly arriving in the emergency department she had 2 episodes of nonbloody diarrhea and the pain has significantly abated. She has had an approximate 10 lb weight loss over the last number of weeks. She also notes that with prior CT scan an adrenal nodules appreciated she is scheduled for a CT adrenal protocol for tomorrow morning at 8:00 a.m.. She is not complaining of chest pain, palpitations, shortness of breath. She has had some associated nausea with the abdominal cramping but no actual vomiting. Related Data Previous Rx's Medication Instructions Recorded acyclovir 400 mg tablet 400 mg PO BID #10 tabs 04/24/20 hydroxychloroquine 200 mg tablet 200 mg PO BIDCC #180 tabs 08/11/20 levothyroxine 125 mcg tablet 125 mcg PO QAM #90 tabs 09/03/21 amoxicillin 875 mg-potassium 1 tab PO BID #20 tabs 12/03/21 clavulanate 125 mg tablet metronidazole 500 mg tablet 500 mg PO TID #30 tabs 12/18/21 vancomycin 125 mg capsule 125 mg PO QID #40 caps 12/18/21 Allergies Allergy/AdvReac Type Severity Reaction Status Date / Time codeine [CODEINE] AdvReac Unknown nausea, Verified 12/03/21 07:45 fainted Review of Systems Review of Systems Narrative: Remainder of complete review of systems is otherwise unremarkable except for that included in the HPI. Patient History Medical History (Updated 12/18/21 @ 02:10 by Florecita Lewis MD) Acne Chicken pox Fractures Herpes (~1985) Hypothyroidism (~1977) Irritable bowel syndrome (~1982) Measles Rheumatoid arthritis (~2011) Tinnitus Vision disorder Family History Father No problems noted. Mother No problems noted. Grandfather No problems noted. Grandmother No problems noted. Social History marital status: number of children: 4 household members: spouse lives independently: Yes education level: college occupational status: other (retired) Previous occupational history: Teacher Smoking Status: Never smoker alcohol intake: current substance use type: does not use Smoking Status: Never smoker alcohol intake frequency: holidays/special occasions only Substance Use Type: does not use Exam Initial Vital Signs Initial Vital Signs: Vital Signs Temperature 97.5 F L 12/17/21 23:27 Pulse Rate 79 12/17/21 23:27 Respiratory Rate 22 12/17/21 23:27 Blood Pressure 173/84 H 12/17/21 23:27 Pulse Oximetry 98 12/17/21 23:27 Oxygen Delivery Method 12/17/21 23:27 General: Healthy appearing, thin, in no acute distress. Able to give a complete and coherent history. Well-nourished well-developed HEENT: Moist mucous membranes, normal sclera with reactive pupils, Neck: No JVD, supple Respiratory: Lungs are clear to auscultation, no wheezing no rales no rhonchi. Full and symmetrical air movement Cardiac: Regular rate and rhythm no murmurs no bruits Abdomen: Soft, minimal diffuse tenderness, no rebound or guarding, good bowel tones, no flank pain Skin: Warm and dry, no rashes Neurologic: Grossly neurologically intact with no obvious asymmetries or abnormalities Extremities: No trauma, well perfused Psych: Cooperative, appropriate insight and affect Course Orders Ordered: ED Orders 12/17/21 23:20 Complete Blood Count AUTO DIFF Stat Comprehensive Metabolic Panel Stat Lipase Stat 12/18/21 00:36 CT abdomen pelvis wo/w con Stat Vital Signs Vital signs: Vital Signs - 8 hr 12/17/21 23:27 Temperature 97.5 F L Pulse Rate 79 Respiratory Rate 22 Blood Pressure 173/84 H Pulse Oximetry 98 Oxygen Delivery Method Room Air Medical Decision Making Lab Data Result diagrams: 12/17/21 23:20 12/17/21 23:20 Labs: Lab Results 12/17/21 12/17/21 Range/Units 23:20 23:20 WBC 6.6 (4.5-11.0) X10^3/uL RBC 4.00 (4.0-5.2) X10^6/uL Hgb 11.4 L (12.0-16.0) g/dL Hct 33.7 L (36-46) % MCV 84.2 (80-100) fL MCH 28.4 (26-34) PG MCHC 33.8 (30-36) % RDW 13.5 (11.6-14.8) % Plt Count 303 (150-400) X10^3/uL Neut % (Auto) 34.1 L (50-75) % Lymph % (Auto) 54.8 H (25-40) % [place] % (Auto) 8.5 (3-14) % Eos % (Auto) 1.5 L (2-4) % Baso % (Auto) 1.1 (0-2) % Neut # (Auto) 2300 (7725-3452) /uL Lymph # (Auto) 3600 (5111-1024) /uL [place] # (Auto) 600 (0-900) /uL Eos # (Auto) 100 (0-450) /uL Baso # (Auto) 100 (0-100) /uL Sodium 139 (137-145) mmol/L Potassium 3.5 (3.4-5.1) mmol/L Chloride 99 (98-107) mmol/L Carbon Dioxide 29 (22-32) mmol/L BUN 18 H (7-17) mg/dL Creatinine 0.68 (0.52-1.04) mg/dL Estimated GFR > 60 (>60) mL/min BUN/Creatinine Ratio 26.5 H (6-22) Glucose 112 H (80-110) mg/dL Calcium 10.0 (8.4-10.2) mg/dL Total Bilirubin 0.2 (0.2-1.3) mg/dL AST 28 (14-36) IU/L ALT 19 (<35) IU/L Alkaline Phosphatase 86 (38-126) U/L Total Protein 8.6 H (6.3-8.2) g/dL Albumin 4.6 (3.5-5.0) g/dL Globulin 4.0 (1.7-4.1) g/dL Albumin/Globulin Ratio 1.2 (1.0-2.8) Lipase 97 (23-300) U/L Imaging Data CT scan - abdomen/pelvis: Radiologist's Impression: FINDINGS:? Image quality:? Excellent.? ? ABDOMEN:? Lung bases:? Two nonspecific subpleural sub solid left lower lobe lung nodules, stable.? Normal heart size.? No hiatal hernia. ? Solid organs:? Several cystic structures in the liver, the largest measuring 2.3 cm with Hounsfield units consistent with a cyst.? No abnormal enhancing masses.? Decompressed gallbladder.? Minor chronic intrahepatic biliary dilatation.? Normal pancreatic contours. ?Normal size spleen.? Subcentimeter adrenal nodules not convincingly identified.? Mild stable left adrenal gland thickening. Symmetric enhancement.? No nephrolithiasis or hydronephrosis.? No hydroureter. ? Bowel and peritoneum:? There are persistent moderate inflammatory changes involving the sigmoid colon.? Additionally, there are new findings of circumferential diffuse colon wall thickening throughout the entire colon.? There is mild wall thickening and mucosal hyperemia involving pelvic small bowel loops.? There are signs of stasis in small bowel loops.? Proximal small bowel is normal.? No free intraperitoneal air or fluid. ? Nodes and vessels:? No retroperitoneal or mesenteric adenopathy by size criteria.? Low-density periaortic adenopathy in the epigastric region.? No discrete bulky mesenteric adenopathy.? Aorta and inferior vena are normal in caliber.? ? Miscellaneous:? No ventral hernias.? ? ? PELVIS:? Genitourinary:? Bladder wall thickness is normal.? Normal uterus.? Nonvisualized ovaries. ? Miscellaneous:? No inguinal hernias or adenopathy.? ? Bones:? No suspicious bony lesions.? No vertebral body compression fractures.? Scattered disc degeneration. ? IMPRESSION:? ? 1. There is persistent sigmoid diverticulitis with new findings of valle colitis, suspicious for infectious, particularly C difficile colitis if the patient has had recent antibiotic therapy.? ? 2. No abscess or perforation. ? 3. Subcentimeter left adrenal nodules not convincingly identified.? No suspicious adrenal mass. ? 4. Nonspecific low-density periaortic adenopathy.? This is most likely reactive to inflammatory/infectious colonic process.? ? Dictated by: Danita Berry M.D. on 12/18/2021 at 1:31 ? ? ECG Data Interpretation: Sinus rhythm at a rate of 71 Low voltage No acute ischemic changes MDM Narrative Medical decision making narrative: 71-year-old woman with recent diverticulitis treated with Augmentin for 10 days seeming improvement [address] scan reveals persistent sigmoid diverticulitis with new finding bed valle colitis suspicious for C diff. Given the concern for persistent sigmoid diverticulitis I am going to place her on both Flagyl as well as oral vancomycin for the C diff. Will not add in either Augmentin or Cipro at this time. Exam is relatively benign and she is not showing signs of sepsis or significant infection. She does not have a surgical abdomen. The subcentimeter left adrenal nodules noted on the CT scan approximately 3 weeks ago are not identified today. Will have patient follow-up with her primary care physician and she is safe for home discharge Discharge Plan Departure Patient Disposition: Home Clinical Impression: Diverticulitis, C. difficile colitis Instructions: DI for Antibiotic -- associated Colitis -- C difficile, DI for Diverticulitis Activity Restrictions/Additional Instructions: Thank you for coming in today Your your CT scan shows that you do not have adrenal nodules that need further evaluation or workup It suggests that your diverticulitis has not completely resolved. I am going to have you complete 10 additional days of metronidazole/Flagyl. We typically combined this with ciprofloxacin for diverticulitis however as it is partially treated and we are also concerned about Clostridium difficile I am going to use the metronidazole/Flagyl as a single antibiotic choice treatment. Your CT scan and your symptoms suggest that you are developing Clostridium difficile diarrhea and colitis. We use to use metronidazole as a first-line treatment for this. We now use vancomycin as a first-line treatment for this Prescriptions were sent to [facility] for you to miner pick tomorrow I would encourage you to also add probiotics to your diet. Continuing your Irish yogurt, consider trying kombucha tea and actually adding either capsule or liquid formulated probiotics while you are currently on these antibiotics make sense. If you find that you are getting worse or develop any new symptoms, please feel free to return to the emergency department for further evaluation. Prescriptions: New vancomycin 125 mg capsule 125 mg PO QID Qty: 40 0RF metronidazole 500 mg tablet 500 mg PO TID Qty: 30 0RF No Action hydroxychloroquine 200 mg tablet 200 mg PO BIDCC Qty: 180 1RF levothyroxine 125 mcg tablet 125 mcg PO QAM Qty: 90 3RF acyclovir 400 mg tablet 400 mg PO BID Qty: 10 3RF amoxicillin-pot clavulanate 875-125 mg tablet 1 tab PO BID Qty: 20 0RF Referrals: Mimi Arce DO [Primary Care Provider] -
[2021-12-18 00:30] VITALS: PULSE 70; O2SAT 97
--- NOTE | 2021-12-18 00:36 | DI.CT.S_ITS ---
PROCEDURE: CT ABDOMEN PELVIS WO/W CON INDICATIONS: Abdominal pain TECHNIQUE: After the administration of oral contrast, 5 mm thick sections acquired from the diaphragms to the iliac crests. After the administration of intravenous contrast, 5 mm thick sections acquired from the diaphragms to the symphysis. 5 mm thick coronal and sagittal reformats were acquired. For radiation dose reduction, the following was used: automated exposure control, adjustment of mA and/or kV according to patient size. COMPARISON: [facility], CT, CT ABDOMEN PELVIS W CON, 12/03/2021, 9:05. FINDINGS: Image quality: Excellent. ABDOMEN: Lung bases: Two nonspecific subpleural sub solid left lower lobe lung nodules, stable. Normal heart size. No hiatal hernia. Solid organs: Several cystic structures in the liver, the largest measuring 2.3 cm with Hounsfield units consistent with a cyst. No abnormal enhancing masses. Decompressed gallbladder. Minor chronic intrahepatic biliary dilatation. Normal pancreatic contours. Normal size spleen. Subcentimeter adrenal nodules not convincingly identified. Mild stable left adrenal gland thickening. Symmetric enhancement. No nephrolithiasis or hydronephrosis. No hydroureter. Bowel and peritoneum: There are persistent moderate inflammatory changes involving the sigmoid colon. Additionally, there are new findings of circumferential diffuse colon wall thickening throughout the entire colon. There is mild wall thickening and mucosal hyperemia involving pelvic small bowel loops. There are signs of stasis in small bowel loops. Proximal small bowel is normal. No free intraperitoneal air or fluid. Nodes and vessels: No retroperitoneal or mesenteric adenopathy by size criteria. Low-density periaortic adenopathy in the epigastric region. No discrete bulky mesenteric adenopathy. Aorta and inferior vena are normal in caliber. Miscellaneous: No ventral hernias. PELVIS: Genitourinary: Bladder wall thickness is normal. Normal uterus. Nonvisualized ovaries. Miscellaneous: No inguinal hernias or adenopathy. Bones: No suspicious bony lesions. No vertebral body compression fractures. Scattered disc degeneration. IMPRESSION: 1. There is persistent sigmoid diverticulitis with new findings of valle colitis, suspicious for infectious, particularly C difficile colitis if the patient has had recent antibiotic therapy. 2. No abscess or perforation. 3. Subcentimeter left adrenal nodules not convincingly identified. No suspicious adrenal mass. 4. Nonspecific low-density periaortic adenopathy. This is most likely reactive to inflammatory/infectious colonic process. Dictated by: Danita Berry M.D. on 12/18/2021 at 1:31 Approved by: Danita Berry M.D. on 12/18/2021 at 1:43
[2021-12-18 01:26] VITALS: BP 136/76; PULSE 76; O2SAT 100
[2021-12-18 01:30] VITALS: PULSE 72; O2SAT 100
[2021-12-18 02:00] VITALS: BP 136/89; PULSE 77; O2SAT 99
[2021-12-18 02:30] VITALS: PULSE 68; O2SAT 95
[2021-12-18] MEDS: VANCOMYCIN 125 MG CAPSULE PO (02:54)
[2021-12-18] MEDS: metroNIDAZOLE 500 MG TABLET PO (02:54)
== END 2021-12-18 03:00 | disposition home or self-care (01) ==
PROVIDERS: Emergency Provider Emergency Medicine; PCP Family Medicine
DX: K57.92 Diverticulitis of intestine, part unspecified, without perforation or abscess without bleeding (principal); A04.72 Enterocolitis due to Clostridium difficile, not specified as recurrent
CPT/HCPCS: 74178; 80053; 83690; 85025; 85610; 85730; 86850; 86900; 86901; 93005; 99283; 99284

== ENCOUNTER 2021-12-18 14:45 | Emergency (ER) | payer MEDICARE, OTHER, SELFPAY ==
[2021-12-18 14:47] VITALS: BP 133/68; PULSE 75; RESP 15; TEMP 36.6; O2SAT 100; BMI 18.8
[2021-12-18 15:17] LABS: Add Manual Diff / Slide Review NO; Basophils Absolute Auto 100 /uL (0-100); Eosinophils Absolute Auto 100 /uL (0-450); Eosinophils Percent Auto 1.4 % (2-4); Hematocrit 32.1 % (36-46); Hemoglobin 10.9 g/dL (12.0-16.0); Lymphocytes Absolute Auto 1800 /uL (1100-4500); Lymphocytes Percent Auto 28.6 % (25-40); Mean Corpuscular HGB Conc 33.9 % (30-36); Mean Corpuscular Hemoglobin 28.6 PG (26-34); Mean Corpuscular Volume 84.5 fL (80-100); Monocytes Absolute Auto 500 /uL (0-900); Monocytes Percent Auto 8.2 % (3-14); Neutrophils Absolute Auto 3900 /uL (1500-7000); Neutrophils Percent Auto 60.8 % (50-75); Platelet Count 253 X10^3/uL (150-400); Red Blood Cell Count 3.79 X10^6/uL (4.0-5.2); Red Cell Distribution Width 13.9 % (11.6-14.8); White Blood Cell Count 6.4 X10^3/uL (4.5-11.0)
[2021-12-18 15:25] LABS: INR 1.2 (0.9-1.3); Prothrombin Time 14.2 SECONDS (10.1-12.7)
[2021-12-18 15:28] LABS: PTT Partial Thromboplastin Tim 33 SECONDS (26-36)
[2021-12-18 15:38] LABS: Alanine Aminotransferase 16 IU/L (<35); Albumin 4.2 g/dL (3.5-5.0); Albumin Globulin Ratio 1.2 (1.0-2.8); Alkaline Phosphatase 67 U/L (38-126); Aspartate Aminotransferase 29 IU/L (14-36); BUN Creatinine Ratio 18.8 (6-22); Bilirubin Total 0.3 mg/dL (0.2-1.3); Blood Urea Nitrogen 12 mg/dL (7-17); Calcium 8.9 mg/dL (8.4-10.2); Carbon Dioxide 28 mmol/L (22-32); Chloride 101 mmol/L (98-107); Estimated Glomerular Filt Rate > 60 mL/min (>60); Globulin 3.6 g/dL (1.7-4.1); Glucose 90 mg/dL (80-110); HEMOLYSIS < 15 (0-50); Potassium 3.8 mmol/L (3.4-5.1); Sodium 138 mmol/L (137-145); Total Protein 7.8 g/dL (6.3-8.2)
[2021-12-18 18:14] VITALS: BP 150/68; PULSE 74; RESP 18; O2SAT 100
--- NOTE | 2021-12-18 19:56 | ED.GIBLEED ---
HPI - GI Bleed General Chief complaint: GI Bleed Stated complaint: bleeding, told to come in Time Seen by Provider: 12/18/21 19:56 Source: patient Mode of arrival: Ambulatory History of Present Illness HPI Narrative: 71-year-old woman with recent diverticulitis was seen last night diagnosed with probable incompletely resolved diverticulitis and developing C diff colitis. She was started on oral Flagyl as well as oral vancomycin and discharged home. She returns today noting that she has had some blood-tinged stools. She has not had fevers, vomiting she has only had couple of episodes of stool she has not eaten very much. She is not having increasing pain and has no other life-threatening concerns at this time Related Data Previous Rx's Medication Instructions Recorded acyclovir 400 mg tablet 400 mg PO BID #10 tabs 04/24/20 hydroxychloroquine 200 mg tablet 200 mg PO BIDCC #180 tabs 08/11/20 levothyroxine 125 mcg tablet 125 mcg PO QAM #90 tabs 09/03/21 amoxicillin 875 mg-potassium 1 tab PO BID #20 tabs 12/03/21 clavulanate 125 mg tablet metronidazole 500 mg tablet 500 mg PO TID #30 tabs 12/18/21 vancomycin 125 mg capsule 125 mg PO QID #40 caps 12/18/21 Allergies Allergy/AdvReac Type Severity Reaction Status Date / Time codeine [CODEINE] AdvReac Unknown nausea, Verified 12/18/21 14:47 fainted Review of Systems Review of Systems Narrative: Remainder of complete review of systems is otherwise unremarkable except for that included in the HPI. Patient History Medical History Acne Chicken pox Fractures Herpes (~1985) Hypothyroidism (~1977) Irritable bowel syndrome (~1982) Measles Rheumatoid arthritis (~2011) Tinnitus Vision disorder Family History Father No problems noted. Mother No problems noted. Grandfather No problems noted. Grandmother No problems noted. Social History marital status: number of children: 4 household members: spouse lives independently: Yes education level: college occupational status: other (retired) Previous occupational history: Teacher Smoking Status: Never smoker alcohol intake: current substance use type: does not use Smoking Status: Never smoker alcohol intake frequency: holidays/special occasions only Substance Use Type: does not use Exam Initial Vital Signs Initial Vital Signs: Vital Signs Temperature 97.8 F 12/18/21 14:47 Pulse Rate 75 12/18/21 14:47 Respiratory Rate 15 12/18/21 14:47 Blood Pressure 133/68 12/18/21 14:47 Pulse Oximetry 100 12/18/21 14:47 Oxygen Delivery Method 12/18/21 14:47 General: Alert appropriate in no acute distress Respiratory: Able to speak in full sentences, no obvious respiratory distress Cardiac: Regular rate and rhythm Abdomen: Minor tenderness without rebound or guarding, Skin: No obvious rashes, warm and dry Neurologic: Grossly intact no obvious asymmetries or abnormalities Psych: appropriate insight and affect, cooperative Course Orders Ordered: ED Orders 12/18/21 14:56 EKG-12 Lead Stat 12/18/21 15:00 Complete Blood Count AUTO DIFF Stat Comprehensive Metabolic Panel Stat Partial Thromboplastin Time Stat Prothrombin Time INR Stat Type and Screen Stat Vital Signs Vital signs: Vital Signs - 8 hr 12/18/21 14:47 12/18/21 18:14 Temperature 97.8 F Pulse Rate 75 74 Respiratory Rate 15 18 Blood Pressure 133/68 150/68 H Pulse Oximetry 100 100 Oxygen Delivery Method Room Air Room Air MDM - GI Bleed Lab Data Result diagrams: 12/18/21 15:00 12/18/21 15:00 Labs: Lab Results 12/18/21 12/18/21 12/18/21 Range/Units 15:00 15:00 15:00 WBC 6.4 (4.5-11.0) X10^3/uL RBC 3.79 L (4.0-5.2) X10^6/uL Hgb 10.9 L (12.0-16.0) g/dL Hct 32.1 L (36-46) % MCV 84.5 (80-100) fL MCH 28.6 (26-34) PG MCHC 33.9 (30-36) % RDW 13.9 (11.6-14.8) % Plt Count 253 (150-400) X10^3/uL Neut % (Auto) 60.8 D (50-75) % Lymph % (Auto) 28.6 D (25-40) % [place] % (Auto) 8.2 (3-14) % Eos % (Auto) 1.4 L (2-4) % Baso % (Auto) 1.0 (0-2) % Neut # (Auto) 3900 (2102-9865) /uL Lymph # (Auto) 1800 (1144-1163) /uL [place] # (Auto) 500 (0-900) /uL Eos # (Auto) 100 (0-450) /uL Baso # (Auto) 100 (0-100) /uL PT 14.2 H (10.1-12.7) SECONDS INR 1.2 (0.9-1.3) APTT 33 (26-36) SECONDS Sodium 138 (137-145) mmol/L Potassium 3.8 (3.4-5.1) mmol/L Chloride 101 (98-107) mmol/L Carbon Dioxide 28 (22-32) mmol/L BUN 12 (7-17) mg/dL Creatinine 0.64 (0.52-1.04) mg/dL Estimated GFR > 60 (>60) mL/min BUN/Creatinine Ratio 18.8 (6-22) Glucose 90 (80-110) mg/dL Calcium 8.9 (8.4-10.2) mg/dL Total Bilirubin 0.3 (0.2-1.3) mg/dL AST 29 (14-36) IU/L ALT 16 (<35) IU/L Alkaline Phosphatase 67 (38-126) U/L Total Protein 7.8 (6.3-8.2) g/dL Albumin 4.2 (3.5-5.0) g/dL Globulin 3.6 (1.7-4.1) g/dL Albumin/Globulin Ratio 1.2 (1.0-2.8) Blood Type Antibody Screen 12/18/21 Range/Units 15:00 WBC (4.5-11.0) X10^3/uL RBC (4.0-5.2) X10^6/uL Hgb (12.0-16.0) g/dL Hct (36-46) % MCV (80-100) fL MCH (26-34) PG MCHC (30-36) % RDW (11.6-14.8) % Plt Count (150-400) X10^3/uL Neut % (Auto) (50-75) % Lymph % (Auto) (25-40) % [place] % (Auto) (3-14) % Eos % (Auto) (2-4) % Baso % (Auto) (0-2) % Neut # (Auto) (3933-7548) /uL Lymph # (Auto) (3124-4003) /uL [place] # (Auto) (0-900) /uL Eos # (Auto) (0-450) /uL Baso # (Auto) (0-100) /uL PT (10.1-12.7) SECONDS INR (0.9-1.3) APTT (26-36) SECONDS Sodium (137-145) mmol/L Potassium (3.4-5.1) mmol/L Chloride (98-107) mmol/L Carbon Dioxide (22-32) mmol/L BUN (7-17) mg/dL Creatinine (0.52-1.04) mg/dL Estimated GFR (>60) mL/min BUN/Creatinine Ratio (6-22) Glucose (80-110) mg/dL Calcium (8.4-10.2) mg/dL Total Bilirubin (0.2-1.3) mg/dL AST (14-36) IU/L ALT (<35) IU/L Alkaline Phosphatase (38-126) U/L Total Protein (6.3-8.2) g/dL Albumin (3.5-5.0) g/dL Globulin (1.7-4.1) g/dL Albumin/Globulin Ratio (1.0-2.8) Blood Type O Positive Antibody Screen Negative [facility] Narrative Medical decision making narrative: 71-year-old woman diagnosed with developing Clostridium difficile and partially treated diverticulitis by CT scan and blood work yesterday. Minor amount of blood noted on stool today without fevers, elevated white cells and no evidence of acute surgical abdomen. Reassurance is given and that she needs to give the antibiotics some time to work. Reviewed when she might need to return to the emergency department, questions are answered and she was safe for home discharge Discharge Plan Departure Patient Disposition: Home Clinical Impression: C. difficile colitis Activity Restrictions/Additional Instructions: Thank you for coming back in and being so patient with the long wait You did need to have blood work repeated and it is reassuring. You do not need to be admitted to the hospital. We know that you have Clostridium difficile and that your diverticulitis is still healing. You are on all of the appropriate antibiotics. Your blood pressure and heart rate are stable at this time. 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 Reasons to return to the emergency room include worsening bleeding particularly blood clots when you do not even feel that you need to have a bowel movement. If your dizzy when your standing up, your having increasing pain or you developing new findings. I hope you heal quickly Prescriptions: No Action hydroxychloroquine 200 mg tablet 200 mg PO BIDCC Qty: 180 1RF levothyroxine 125 mcg tablet 125 mcg PO QAM Qty: 90 3RF acyclovir 400 mg tablet 400 mg PO BID Qty: 10 3RF amoxicillin-pot clavulanate 875-125 mg tablet 1 tab PO BID Qty: 20 0RF vancomycin 125 mg capsule 125 mg PO QID Qty: 40 0RF metronidazole 500 mg tablet 500 mg PO TID Qty: 30 0RF Referrals: Mimi Arce DO [Primary Care Provider] - Visit Report Forms: Patient Portal/API
[2021-12-18 20:19] VITALS: BP 145/64; PULSE 70; RESP 18; O2SAT 100
== END 2021-12-18 20:20 | disposition home or self-care (01) ==
PROVIDERS: Emergency Medicine; Emergency Provider Emergency Medicine; PCP Family Medicine
DX: A04.72 Enterocolitis due to Clostridium difficile, not specified as recurrent (principal)
CPT/HCPCS: 80053; 85025; 85610; 85730; 86850; 86900; 86901; 93005; 99281; 99284

== ENCOUNTER 2022-01-01 08:23 | Emergency (ER) | payer MEDICARE, OTHER, SELFPAY ==
[2022-01-01] VITALS (11 sets, daily range): BP systolic 92–135; BP diastolic 50–75; PULSE 85–96; RESP 18; TEMP 37.2; O2SAT 96–99; BMI 18.8
--- NOTE | 2022-01-01 08:45 | ED.ABDPAIN ---
HPI - Abdominal Pain General Chief Complaint: Abdominal Pain Stated Complaint: Abd pain, N/V/D Time Seen by Provider: 01/01/22 08:27 History of Present Illness HPI narrative: Destiny is a 71-year-old woman with recent diverticulitis and C difficile colitis. She was diagnosed with diverticulitis earlier in November and on the 18 of December was diagnosed with C difficile colitis and has been on oral vancomycin since then. She is recently completed that and has a plan to see a GI doctor in follow-up. Over the past 48 hours she is had increasing abdominal pain and diarrhea and explosive diarrhea. No blood. Nausea but no emesis, no fever. Her abdominal pain is quite severe as well. It comes episodically and it is crampy. Past medical history remarkable for rheumatoid arthritis and she has been taking hydroxychloroquine but has discontinued that recently because of the symptoms of her abdomen. Related Data Previous Rx's Medication Instructions Recorded acyclovir 400 mg tablet 400 mg PO BID #10 tabs 04/24/20 hydroxychloroquine 200 mg tablet 200 mg PO BIDCC #180 tabs 08/11/20 levothyroxine 125 mcg tablet 125 mcg PO QAM #90 tabs 09/03/21 amoxicillin 875 mg-potassium 1 tab PO BID #20 tabs 12/03/21 clavulanate 125 mg tablet metronidazole 500 mg tablet 500 mg PO TID #30 tabs 12/18/21 vancomycin 125 mg capsule 125 mg PO QID #40 caps 12/18/21 nystatin 100,000 unit/mL oral 1 ml PO DAILY #60 mL 12/21/21 suspension hyoscyamine sulfate 0.125 mg tablet 0.25 mg PO QID PRN dyspepsia #14 01/01/22 tabs Allergies Allergy/AdvReac Type Severity Reaction Status Date / Time codeine [CODEINE] AdvReac Unknown nausea, Verified 12/18/21 14:47 fainted Review of Systems Review of Systems Narrative: Complete review of systems is negative other than as noted above. Patient History Medical History (Updated 01/01/22 @ 10:56 by Lorenzo Hernandez MD) Acne Chicken pox Fractures Herpes (~1985) Hypothyroidism (~1977) Irritable bowel syndrome (~1982) Measles Rheumatoid arthritis (~2011) Tinnitus Vision disorder Family History Father No problems noted. Mother No problems noted. Grandfather No problems noted. Grandmother No problems noted. Social History marital status: number of children: 4 household members: spouse lives independently: Yes education level: college occupational status: other (retired) Previous occupational history: Teacher Smoking Status: Never smoker alcohol intake: current substance use type: does not use Smoking Status: Never smoker alcohol intake frequency: holidays/special occasions only Substance Use Type: does not use Exam Narrative Exam Narrative: GENERAL: Alert, appears uncomfortable and is fidgeting with her legs. HEAD: Atraumatic. Normocephalic. EYES: Sclera are clear without icterus. Extraocular movements are full. ENT: No rhinorrhea. Oropharynx is moist. Mouth exam is benign. NECK: Supple. Full range of motion. CARDIOVASCULAR: Normal rate and rhythm without murmur gallop or rub. RESPIRATORY: Clear to auscultation. Breath sounds equal bilaterally. No wheezes, rales, or rhonchi. GASTROINTESTINAL: Normal bowel sounds, her abdomen is soft without guarding or mass. There is diffuse mild tenderness. EXTREMITIES: No edema, full range of motion. No obvious trauma. BACK: Normal inspection, no CVA tenderness. NEURO: Nonfocal examination, normal speech, normal gait. SKIN: No rash or erythema of visible areas PSYCH: Normally oriented. Normal range of affect. Appropriate behavior Initial Vital Signs Initial Vital Signs: Vital Signs Pulse Rate 85 01/01/22 08:34 Pulse Oximetry 99 01/01/22 08:34 Course Course Course Narrative: Current time is 11:05 a.m.. She feels quite a bit better at this point but is still mildly tachycardic. CT shows persistent colitis. Stool specimen is now sent for C difficile. Will repeat a lactic acid now and then when that result is available will discuss the case with primary care, GI or surgery. Orders Ordered: ED Orders 01/01/22 08:44 COVID19 -Nasal RAPID/Pre-Proc Stat 01/01/22 08:45 CBC Auto Diff [Complete Blood Count AUTO DIFF] Stat CMP [Comprehensive Metabolic Panel] Stat Lactate (Lactic Acid) Stat 01/01/22 08:56 CT abdomen pelvis w con Stat 01/01/22 10:40 C Difficile [Clostridium Difficile Tox PCR] Stat Discontinued Medications Acetaminophen (Acetaminophen 325 Mg Tablet) 975 mg PO NOW ONE Stop: 01/01/22 08:44 Last Admin: 01/01/22 09:08 Dose: 975 mg Documented By: MARTITA Diazepam (Diazepam 10 Mg/2 Ml Syringe) 5 mg IV NOW ONE Stop: 01/01/22 08:44 Last Admin: 01/01/22 09:09 Dose: 5 mg Documented By: MARTITA Sodium Chloride (Normal Saline 0.9%) 1,000 mls @ 1,000 mls/hr IV BOLUS ONE Stop: 01/01/22 09:42 Last Admin: 01/01/22 09:08 Dose: 1,000 mls/hr Documented By: MARTITA Ondansetron HCl (Ondansetron 4 Mg Odt) 4 mg SL NOW ONE Stop: 01/01/22 08:44 Last Admin: 01/01/22 09:08 Dose: 4 mg Documented By: MARTITA Vital Signs Vital signs: Vital Signs - 8 hr 01/01/22 08:44 01/01/22 08:34 01/01/22 08:36 Temperature 98.9 F Pulse Rate 93 H 85 Respiratory Rate 18 Blood Pressure 130/75 130/72 Pulse Oximetry 99 99 Oxygen Delivery Method Room Air 01/01/22 08:36 Temperature Pulse Rate 93 H Respiratory Rate Blood Pressure Pulse Oximetry 99 Oxygen Delivery Method MDM - Abdominal Pain Lab Data Result diagrams: 01/01/22 08:45 01/01/22 08:45 Labs: Lab Results 01/01/22 01/01/22 01/01/22 Range/Units 08:45 08:45 08:45 WBC 11.0 (4.5-11.0) X10^3/uL RBC 4.17 (4.0-5.2) X10^6/uL Hgb 12.0 (12.0-16.0) g/dL Hct 35.9 L (36-46) % MCV 86.2 (80-100) fL MCH 28.7 (26-34) PG MCHC 33.3 (30-36) % RDW 14.9 H (11.6-14.8) % Plt Count 240 (150-400) X10^3/uL Neut % (Auto) 91.4 H (50-75) % Lymph % (Auto) 4.5 L (25-40) % [place] % (Auto) 3.7 (3-14) % Eos % (Auto) 0.2 L (2-4) % Baso % (Auto) 0.2 (0-2) % Neut # (Auto) 48883 H (3825-0652) /uL Lymph # (Auto) 500 L (7757-1095) /uL [place] # (Auto) 400 (0-900) /uL Eos # (Auto) 0 (0-450) /uL Baso # (Auto) 0 (0-100) /uL Sodium 139 (137-145) mmol/L Potassium 4.0 (3.4-5.1) mmol/L Chloride 105 (98-107) mmol/L Carbon Dioxide 27 (22-32) mmol/L BUN 18 H (7-17) mg/dL Creatinine 0.64 (0.52-1.04) mg/dL Estimated GFR > 60 (>60) mL/min BUN/Creatinine Ratio 28.1 H (6-22) Glucose 127 H (80-110) mg/dL Lactate 2.4 H (0.7-2.1) mmol/L Calcium 9.6 (8.4-10.2) mg/dL Total Bilirubin 0.6 (0.2-1.3) mg/dL AST 28 (14-36) IU/L ALT 16 (<35) IU/L Alkaline Phosphatase 70 (38-126) U/L Total Protein 8.3 H (6.3-8.2) g/dL Albumin 4.4 (3.5-5.0) g/dL Globulin 3.9 (1.7-4.1) g/dL Albumin/Globulin Ratio 1.1 (1.0-2.8) C. difficile Tox (PCR) (Negative) 01/01/22 01/01/22 Range/Units 10:40 11:04 WBC (4.5-11.0) X10^3/uL RBC (4.0-5.2) X10^6/uL Hgb (12.0-16.0) g/dL Hct (36-46) % MCV (80-100) fL MCH (26-34) PG MCHC (30-36) % RDW (11.6-14.8) % Plt Count (150-400) X10^3/uL Neut % (Auto) (50-75) % Lymph % (Auto) (25-40) % [place] % (Auto) (3-14) % Eos % (Auto) (2-4) % Baso % (Auto) (0-2) % Neut # (Auto) (9360-1007) /uL Lymph # (Auto) (8235-6245) /uL [place] # (Auto) (0-900) /uL Eos # (Auto) (0-450) /uL Baso # (Auto) (0-100) /uL Sodium (137-145) mmol/L Potassium (3.4-5.1) mmol/L Chloride (98-107) mmol/L Carbon Dioxide (22-32) mmol/L BUN (7-17) mg/dL Creatinine (0.52-1.04) mg/dL Estimated GFR (>60) mL/min BUN/Creatinine Ratio (6-22) Glucose (80-110) mg/dL Lactate 1.6 (0.7-2.1) mmol/L Calcium (8.4-10.2) mg/dL Total Bilirubin (0.2-1.3) mg/dL AST (14-36) IU/L ALT (<35) IU/L Alkaline Phosphatase (38-126) U/L Total Protein (6.3-8.2) g/dL Albumin (3.5-5.0) g/dL Globulin (1.7-4.1) g/dL Albumin/Globulin Ratio (1.0-2.8) C. difficile Tox (PCR) Negative for c. diff (Negative) Imaging Data CT scan - abdomen/pelvis: Radiologist's Impression: IMPRESSION:? ? 1. Marked circumferential wall thickening of the colon which is a new finding when compared with the study dated December 03, 2021 suggesting ongoing colitis which is likely increased in severity overall.? Wall thickening of the sigmoid colon was present previously and is slightly decreased in extent with decreased pericolonic fat stranding, but inflammatory changes persist.? ? ? Dictated by: Shilpi Baker M.D. on 01/01/2022 at 9:10 ? ? Approved by: Shilpi Baker M.D. on 01/01/2022 at 9:13? MDM Narrative Medical decision making narrative: Patient is feeling much better. Will add on a PCR [facility] GI panel. Which will include C difficile. I spoke with Dr. Arce just now who agrees to arrange for close outpatient follow-up. Will prescribe hyoscyamine as an antispasmodic to be taken in addition to Tylenol as needed. Careful return precautions given. It is not entirely clear to me that this woman in fact had diverticulitis nor is it proven that she had C difficile colitis. I think further evaluation is certainly necessary. I do not think she has a surgical problem right now and I do think outpatient follow-up is safe and appropriate. Discharge Plan Departure Patient Disposition: Home Clinical Impression: Colitis Activity Restrictions/Additional Instructions: I do not believe you need to be hospitalized at this point but you do certainly have colitis. The cause of the colitis is still I think a little bit of a mystery. I added on a detailed GI test today for the stool that we collected. I recommend follow-up with Dr. Arce in the coming days. Her office should contact you later today with a specific appointment time. In the meantime, use Tylenol 1000 mg every 6 hours along with hyoscyamine as needed as an antispasmodic. Return to the emergency department for uncontrolled symptoms. Prescriptions: New hyoscyamine sulfate 0.125 mg tablet 0.25 mg PO QID PRN (Reason: dyspepsia) Qty: 14 0RF No Action hydroxychloroquine 200 mg tablet 200 mg PO BIDCC Qty: 180 1RF levothyroxine 125 mcg tablet 125 mcg PO QAM Qty: 90 3RF nystatin 100,000 unit/mL suspension 1 ml PO DAILY Qty: 60 0RF Rx Instructions: swish and spit one mL daily until resolved. acyclovir 400 mg tablet 400 mg PO BID Qty: 10 3RF amoxicillin-pot clavulanate 875-125 mg tablet 1 tab PO BID Qty: 20 0RF vancomycin 125 mg capsule 125 mg PO QID Qty: 40 0RF metronidazole 500 mg tablet 500 mg PO TID Qty: 30 0RF Referrals: Mimi Arce DO [Primary Care Provider] -
[2022-01-01 08:50] LABS: Add Manual Diff / Slide Review NO; Basophils Absolute Auto 0 /uL (0-100); Basophils Percent Auto 0.2 % (0-2); Eosinophils Absolute Auto 0 /uL (0-450); Eosinophils Percent Auto 0.2 % (2-4); Hematocrit 35.9 % (36-46); Lymphocytes Absolute Auto 500 /uL (1100-4500); Lymphocytes Percent Auto 4.5 % (25-40); Mean Corpuscular HGB Conc 33.3 % (30-36); Mean Corpuscular Hemoglobin 28.7 PG (26-34); Mean Corpuscular Volume 86.2 fL (80-100); Monocytes Absolute Auto 400 /uL (0-900); Monocytes Percent Auto 3.7 % (3-14); Neutrophils Absolute Auto 10000 /uL (1500-7000); Neutrophils Percent Auto 91.4 % (50-75); Platelet Count 240 X10^3/uL (150-400); Red Blood Cell Count 4.17 X10^6/uL (4.0-5.2); Red Cell Distribution Width 14.9 % (11.6-14.8)
--- NOTE | 2022-01-01 08:56 | DI.CT.S_ITS ---
PROCEDURE: CT ABDOMEN PELVIS W CON INDICATIONS: Fever and abdominal pain TECHNIQUE: After the administration of intravenous contrast, axial sections acquired from the lung bases to the pubic symphysis. Coronal and sagittal reformats were performed. For radiation dose reduction, the following was used: automated exposure control, adjustment of mA and/or kV according to patient size. COMPARISON: [facility], CT, CT ABDOMEN PELVIS W CON, 12/03/2021, 9:05. FINDINGS: Image quality: Excellent. Lung bases: Unremarkable. Heart: No significant findings. ABDOMEN: Liver: Low-density cystic lesions are redemonstrated within the liver. Gallbladder: Unremarkable. Biliary ducts: Unremarkable. Pancreas: Unremarkable. Spleen: Unremarkable. Adrenal Glands: Unremarkable. Kidneys and Ureters: Unremarkable. Stomach and Bowel: The stomach and small bowel demonstrate normal caliber and wall thickness. The appendix is not visualized. There is circumferential mucosal thickening throughout the colon which is a new finding when compared with the study dated December 03, 2021. These findings are most severe within the sigmoid colon. Trace pericolonic fat stranding is present in this region. The extent of pericolonic fat stranding at the sigmoid is decreased when compared with the study dated December 03, 2021. Peritoneum: No abnormal intraperitoneal fluid. No free air. Ventral Wall: No hernias. Abdominal Nodes: No retroperitoneal or mesenteric adenopathy by size criteria. Vessels: Aorta and inferior vena cava are normal in size. PELVIS: Pelvic Organs: Unremarkable. Bladder: Unremarkable. Pelvic Nodes: No enlarged lymph nodes. Miscellaneous: No hernias are seen. Bones: Unremarkable. IMPRESSION: 1. Marked circumferential wall thickening of the colon which is a new finding when compared with the study dated December 03, 2021 suggesting ongoing colitis which is likely increased in severity overall. Wall thickening of the sigmoid colon was present previously and is slightly decreased in extent with decreased pericolonic fat stranding, but inflammatory changes persist. Dictated by: Shilpi Baker M.D. on 01/01/2022 at 9:10 Approved by: Shilpi aBker M.D. on 01/01/2022 at 9:13
[2022-01-01 09:00] LABS: Alanine Aminotransferase 16 IU/L (<35); Albumin 4.4 g/dL (3.5-5.0); Albumin Globulin Ratio 1.1 (1.0-2.8); Alkaline Phosphatase 70 U/L (38-126); Aspartate Aminotransferase 28 IU/L (14-36); BUN Creatinine Ratio 28.1 (6-22); Bilirubin Total 0.6 mg/dL (0.2-1.3); Blood Urea Nitrogen 18 mg/dL (7-17); Calcium 9.6 mg/dL (8.4-10.2); Carbon Dioxide 27 mmol/L (22-32); Chloride 105 mmol/L (98-107); Estimated Glomerular Filt Rate > 60 mL/min (>60); Globulin 3.9 g/dL (1.7-4.1); Glucose 127 mg/dL (80-110); HEMOLYSIS < 15 (0-50); Sodium 139 mmol/L (137-145); Total Protein 8.3 g/dL (6.3-8.2)
[2022-01-01 09:01] LABS: Lactate (Lactic Acid) 2.4 mmol/L (0.7-2.1)
[2022-01-01] MEDS: ONDANSETRON 4 MG ODT SL (09:08)
[2022-01-01] MEDS: SODIUM CHLORIDE 0.9% 1,000 ML 1000 ML IV (09:08)
[2022-01-01] MEDS: ACETAMINOPHEN 325 MG TABLET 975 MG PO (09:08)
[2022-01-01] MEDS: diazePAM 10 MG/2 ML SYRINGE 5 MG IV (09:09)
[2022-01-01 10:47] LABS: Reflexed Lactate in 2 Hours Y
[2022-01-01 11:21] LABS: Lactate 2HR (Lactic Acid Rflx) 1.6 mmol/L (0.7-2.1)
[2022-01-01 12:01] LABS: Clostridium Difficile Tox PCR Negative for C. diff (Negative)
[2022-01-01 13:43] LABS: Adenovirus F 40/41 Not Detected (Not Detect); Astrovirus Not Detected (Not Detect); Campylobacter Not Detected (Not Detect); Clostridium difficile toxin AB Not Detected (Not Detect); Cryptosporidium Not Detected (Not Detect); Cyclospora cayetanensis Not Detected (Not Detect); Entamoeba histolytica Not Detected (Not Detect); Enteroaggregative E.coli Not Detected (Not Detect); Enterotoxigenic E.coli It/st Not Detected (Not Detect); Giardia lamblia Not Detected (Not Detect); Norovirus GI/GII Not Detected (Not Detect); Plesiomonsa shigelloides Not Detected (Not Detect); Rotavirus A Not Detected (Not Detect); Salmonella Not Detected (Not Detect); Sapovirus Not Detected (Not Detect); Shigella/Enteroinvasive E.coli Not Detected (Not Detect); Vibrio Not Detected (Not Detect); Vibrio cholerae Not Detected (Not Detect); Yersinia enterocolitica Not Detected (Not Detect)
[2022-01-01 13:48] LABS: Shiga-like toxin-prod E.coli Detected (Not Detect)
== END 2022-01-01 12:36 | disposition home or self-care (01) ==
PROVIDERS: Emergency Provider Family Medicine Addiction Medicine; PCP Family Medicine
DX: K52.9 Noninfective gastroenteritis and colitis, unspecified (principal); R10.9 Unspecified abdominal pain
CPT/HCPCS: 36415; 74177; 80053; 83605; 85025; 87493; 87507; 96361; 96374; 99284; J3360

== ENCOUNTER → 2022-01-11 08:18 | Outpatient (CLI) | payer MEDICARE, OTHER, SELFPAY ==
--- NOTE | 2022-01-11 | DI.RAD.S_ITS ---
PROCEDURE: XR ABDOMEN 3V INDICATIONS: Other specified symptoms and signs involving the d TECHNIQUE: One view chest and two views of the abdomen were acquired. COMPARISON: [facility], CR, XR ABDOMEN MIN 2V, 12/03/2021, 8:08. FINDINGS: Surgical changes and devices: None. Chest: Lungs are clear. Heart size is normal. No pleural effusions. No pneumoperitoneum. Abdomen: Bowel gas pattern is normal. No suspicious calcifications. Visualized solid organ contours appear normal. There is [id number] increased stool noted throughout the patient's colon. Bones: No suspicious bony lesions. There is a mild to moderate lumbar scoliosis convex to the right at the thoracolumbar lumbar junction. IMPRESSION: 1. Nonspecific bowel-gas pattern with [id number] increased stool throughout the patient's colon. 2. Mild to moderate thoracolumbar scoliosis. Dictated by: Henrry Wilkerson M.D. on 01/11/2022 at 8:59 Approved by: Hernry Wilkerson M.D. on 01/11/2022 at 9:04
== END ==
PROVIDERS: PCP Family Medicine; Referring Provider Internal Medicine Gastroenterology; Visit Provider Internal Medicine Gastroenterology
DX: R19.8 Other specified symptoms and signs involving the digestive system and abdomen (principal); R19.7 Diarrhea, unspecified; R63.4 Abnormal weight loss; R10.9 Unspecified abdominal pain; M41.85 Other forms of scoliosis, thoracolumbar region; Z20.822 Contact with and (suspected) exposure to COVID-19
CPT/HCPCS: 74021; 87635; C9803

== ENCOUNTER → 2022-01-11 08:55 | Outpatient (CLI) | payer MEDICARE, OTHER, SELFPAY ==
[2022-01-11 10:30] LABS: COVID19 -Nasal RAPID Negative (Negative)
== END ==
PROVIDERS: PCP Family Medicine; Visit Provider Surgery
DX: Z01.812 Encounter for preprocedural laboratory examination (principal); Z20.822 Contact with and (suspected) exposure to COVID-19
CPT/HCPCS: 87635

== ENCOUNTER 2022-01-14 09:34 | Day surgery (SDC) | payer MEDICARE, OTHER, SELFPAY ==
[2022-01-14] VITALS (7 sets, daily range): BP systolic 100–128; BP diastolic 66–72; PULSE 65–85; RESP 14–29; TEMP 36.3–36.6; O2SAT 94–100; BMI 17.6
--- NOTE | 2022-01-14 | PATH_ITS ---
[facility] Accession Number: [id number] . 01 Material submitted: . PART A: colon - RIGHT COLON BIOPSY PART B: sigmoid colon - SIGMOID BIOPSY PART C: rectum - RECTAL BIOPSY . 01 Clinical history: . SDC OTHER SPECIFIED SYMPTOMS AND SIGNS INVOLVING . 01 Diagnosis: A. Right Colon, Biopsy: Colonic mucosa with no diagnostic abnormality. Negative for active, chronic, and microscopic colitis. Negative for dysplasia and malignancy. . B-C: Sigmoid Colon and Rectum, Biopsies: Mild active colitis; please see comment. Negative for granulomas, dysplasia, or malignancy. MRV 01/18/2022 1321 Local . 01 Comment: Parts B and C: The findings in the sigmoid colon and rectum biopsies are most suggestive of an acute self-limited colitis (infectious versus drug/toxin induced). . 01 Electronically signed: . Valentin Cruz MD, PhD, Pathologist NPI- [id number] . 01 Gross description: . Part A: RIGHT COLON BIOPSY: Received in formalin is 1 fragment(s) of [place], soft tissue measuring 0.2 x 0.1 x 0.1 cm submitted entirely in 1 cassette(s) Part B: SIGMOID BIOPSY: Received in formalin are 2 fragment(s) of [place], soft tissue measuring 0.2 x 0.1 x 0.1 cm to 0.1 x 0.1 x 0.1 cm submitted entirely in 1 cassette(s) Part C: RECTAL BIOPSY: Received in formalin are 2 fragment(s) of [place], soft tissue measuring 0.2 x 0.1 x 0.1 cm to 0.2 x 0.1 x 0.1 cm submitted entirely in 1 cassette(s) /CPE 01/15/2022 0910 Local . 01 Pathologist provided ICD-10: R19.8, K52.9 . 01 CPT . 527994, 403738, 140360 [facility]formed at: [facility] [address] [address], [place], [place] [id number] MD Cornell Hylton MD Phone: [phone]
[2022-01-14] MEDS: SODIUM CHLORIDE 0.9% 1,000 ML 84 ML IV (10:25)
--- NOTE | 2022-01-14 11:22 | PM.HP.1 ---
History of Present Illness History of Present Illness Date Patient Seen: 01/14/22 Time Patient Seen: 11:23 Chief complaint: SDC Narrative: I reviewed my note. X-rays were positive. Patient prepped okay. [facility] results are not back yet. Patient History Medical History Acne Chicken pox Fractures Herpes (~1985) Hypothyroidism (~1977) Irritable bowel syndrome (~1982) Measles Rheumatoid arthritis (~2011) Tinnitus Vision disorder Family & Social History Family History Father No problems noted. Mother No problems noted. Grandfather No problems noted. Grandmother No problems noted. Social History: household members spouse lives independently Yes Tobacco & Substance use: Smoking Status Never smoker alcohol intake current alcohol intake frequency holiday/special occasion Substance Use Type does not use Meds Home Medications and Allergies Home Medications Medication Instructions Recorded Confirmed Type hydroxychloroquine 200 mg tablet 200 mg PO BIDCC #180 tabs 08/11/20 01/14/22 Rx levothyroxine 125 mcg tablet 125 mcg PO QAM #90 tabs 09/03/21 01/14/22 Rx metronidazole 500 mg tablet 500 mg PO TID #30 tabs 12/18/21 01/14/22 Rx vancomycin 125 mg capsule 125 mg PO QID #40 caps 12/18/21 01/14/22 Rx Allergies Allergy/AdvReac Type Severity Reaction Status Date / Time codeine [CODEINE] AdvReac Unknown nausea, Verified 01/14/22 10:02 fainted Review of Systems Review of Systems ROS: Yes All systems reviewed with the patient and are negative except as otherwise documented Exam Vital Signs (past 8 hours): - 01/14/22 10:25 Temperature 97.8 F Pulse Rate 65 Respiratory Rate 16 Blood Pressure 108/71 Pulse Oximetry 100 Oxygen Delivery Method Room Air Oxygen Delivery Method Room Air Const General: cooperative HENMT Head: normal to inspection Eyes General: appearance normal, both eyes and all related structures Neck Neck: normal visual inspection Chest Chest: normal inspection of the chest Resp Effort & Inspection: normal respiratory effort Cardio Rate: regular rate GI Inspection: normal to inspection Skin General: no rashes or lesions noted Neuro General: patient alert and patient awake Extrem General: normal to inspection and no pedal edema Psych Appearance: grossly normal Assessment & Plan Assessment & Plan narrative: 71-year-old female with altered bowel habit diarrhea weight loss abnormal imaging. Colonoscopy is pursued. Time Spent With Patient Critical Care time: I spent a total of [] minutes of critical care time on this patient's care today; this time is exclusive of procedural time.
--- NOTE | 2022-01-14 11:59 | PM.PREOP ---
Pre-operative Note COVID-19 COVID-19 status: Negative Result date/Date tested (Pos, Neg/Pending): 01/11/22 Criteria for continued procedure: Possibility delay results in more complex future surgery or treatment Interval Note History & Physical reviewed/Exam performed by Physician: Yes Changes to H&P: No ASA Class (for procedural sedation): II
--- NOTE | 2022-01-14 12:55 | PM.OP.COLON ---
Operative Date/Time/Diagnoses Date of procedure: 01/14/22 Time of procedure: 12:55 Pre-op diagnosis: Change in bowel habit diarrhea abnormal imaging weight loss rectal bleeding Post-op diagnosis: same Procedure & Clinicians Study performed: Colonoscopy with biopsies Same procedure as scheduled: Yes Indications: Change in bowel habit diarrhea abnormal imaging weight loss rectal bleeding Surgeon: Abbe Hein Procedure Notes SCOAP/Timeout: Done Procedure in detail: After the risks and benefits were explained, written and verbal informed consent was obtained. The patient was brought into the procedure room and placed into the left lateral decubitus position. Conscious sedation medication was applied as per nursing documentation. Digital rectal examination was accomplished. The scope was introduced into the patient and advanced under direct visualization to the cecum as identified by the appendiceal orifice and ileocecal valve. The scope was slowly withdrawn to carefully examine the mucosa for any defects or lesions. Comprehensive imaging was accomplished throughout the rectum including the dentate line. The colon was decompressed, the scope was then removed from the patient who tolerated the procedure well. Complications: none Impression: The patient had an exceedingly difficult navigation through the sigmoid. This was extremely tortuous. I did not see large mouthed diverticula. There was some scattered erythema and subtle swelling of the mucosa which could conceivably have hidden smaller diverticula in this segment. There were scattered subtle seemingly old almost completely healed up erosive features all throughout the rectosigmoid region. Biopsies were acquired from the sigmoid and in the rectum and submitted separately. These features slowly disappeared by about splenic flexure. Transverse and ascending were normal. Random right colon biopsies were taken for histologic contrast. The terminal ileum was interrogated and appeared visually normal. No sign of polyps or mass lesions throughout. Endoscopic diagnosis 1. Exceptionally challenging tortuous sigmoid colon 2. Mild left colonic scattered inflammation Post-procedure Plan for aftercare: 1. Await histopathology. 2. Metamucil twice daily. MiraLax as needed. 3. Follow up on response in the short term in GI clinic. Disposition: PACU
== END 2022-01-14 13:37 | disposition home or self-care (01) ==
PROVIDERS: PCP Family Medicine; Referring Provider Internal Medicine Gastroenterology; Visit Provider Internal Medicine Gastroenterology
PROC: 0DJD8ZZ Inspection of Lower Intestinal Tract, Via Natural or Artificial Opening Endoscopic (ICD-10-PCS; CPT 45378; principal; 2022-01-14 10:30)
DX: K62.5 Hemorrhage of anus and rectum (principal); R63.4 Abnormal weight loss; K52.9 Noninfective gastroenteritis and colitis, unspecified
CPT/HCPCS: 45380; J2704

== ENCOUNTER → 2022-06-17 14:26 | Outpatient (CLI) | payer MEDICARE, OTHER, SELFPAY ==
--- NOTE | 2022-06-17 | DI.MG.S_ITS ---
BILATERAL DIGITAL SCREENING MAMMOGRAM 3D/2D WITH CAD: 06/17/2022 CLINICAL: Baseline exam. Routine screening. No prior exams were available for comparison. Both breasts are almost entirely fatty (category a/<25% glandular tissue). Current study was also evaluated with a Computer Aided Detection (CAD) system. There are benign calcifications in both breasts. No significant masses, calcifications, or other findings are seen in either breast. IMPRESSION: BENIGN There is no mammographic evidence of malignancy. A 1 year screening mammogram is recommended. Based on the Tyrer Cuzick model (a risk assessment model) the patient's lifetime risk is 11.7% and her 10 year risk is 7.5%. According to the ACR, ACS, and NCCN guidelines, an annual breast MRI exam along with mammogram is recommended if the patient's lifetime risk is 20% or greater. This exam was interpreted at Station ID: [id number]. NOTE: For mammograms, a report in lay terms will be sent to the patient. Approximately 15% of breast malignancies will not be visualized mammographically. In the management of a palpable breast mass, a negative mammogram must not discourage biopsy of a clinically suspicious lesion. Electronically Signed By: Rafal Love M.D. acr/spenser:06/17/2022 16:24:55 letter sent: Normal Exam ACR BI-RADS Category 2: Benign Finding(s) 3342F
== END ==
PROVIDERS: PCP Family Medicine; Referring Provider Family Medicine; Visit Provider Family Medicine
DX: Z12.31 Encounter for screening mammogram for malignant neoplasm of breast; Z13.820 Encounter for screening for osteoporosis; M81.0 Age-related osteoporosis without current pathological fracture; Z78.0 Asymptomatic menopausal state; K63.9 Disease of intestine, unspecified; M06.9 Rheumatoid arthritis, unspecified
CPT/HCPCS: 77063; 77067; 77080

== ENCOUNTER → 2022-07-18 11:59 | Outpatient (CLI) | payer MEDICARE, OTHER, SELFPAY ==
[2022-07-18 13:10] LABS: Blood Urea Nitrogen 14 mg/dL (7-17); Calcium 9.8 mg/dL (8.4-10.2); Carbon Dioxide 33 mmol/L (22-32); Chloride 99 mmol/L (98-107); Estimated Glomerular Filt Rate > 60 mL/min (>60); Glucose 75 mg/dL (80-110); HEMOLYSIS < 15 (0-50); Sodium 139 mmol/L (137-145)
[2022-07-18 15:15] LABS: Vitamin D 25 Hydroxy (D3) 34.5 ng/mL (30.0-100.0)
[2022-07-18 15:59] LABS: TSH w/ Reflex to FT4 2.83 uIU/mL (0.47-4.68)
== END ==
PROVIDERS: PCP Family Medicine; Referring Provider Family Medicine; Visit Provider Family Medicine
DX: M81.0 Age-related osteoporosis without current pathological fracture (principal); E03.9 Hypothyroidism, unspecified
CPT/HCPCS: 36415; 80048; 82306; 84443

== ENCOUNTER 2022-11-13 09:30 | Outpatient (RCR) | payer MEDICARE, OTHER, SELFPAY ==
--- NOTE | 2022-10-01 17:49 | PT.OIE ---
Current Diagnoses Scoliosis, unspecified (10/01/22) Age-related osteoporosis without current pathological fracture (10/01/22) Abnormal posture (10/01/22) Past Medical History (Last Updated 07/18/22 @ 14:57 by Mimi Arce DO) Acne Chicken pox Fractures Herpes (~1985) Hypothyroidism (~1977) Irritable bowel syndrome (~1982) Measles Osteoporosis Rheumatoid arthritis (~2011) Tinnitus Vision disorder Visit Care Team Role Provider Type Adrian Moeller MD Primary Care Provider Physician Specialty: Internal Medicine Address: [address] [place] [address], [facility] Email: [email or web address] Mimi Arce DO Attending Provider Physician Family Provider Referring Provider Specialty: Family Practice Address: [address] [place] [address], [facility] Email: [email or web address] Physical Therapy Initial Evaluation PT-OP-A Visit Information Start: 10/01/22 15:06 Freq: Status: Active Protocol: Document 10/01/22 13:30 DCW (Rec: 10/01/22 15:21 DCW [id number]) Out-Patient Physical Therapy Visit Information Visit Information Visit Type Initial Evaluation Visit Start Time 13:30 Visit Stop Time 14:15 Total Visit Minutes 45 Visit Number 1 Number of COMPUTER INSTRUCTOR Visits 0 Evaluation Information Evaluation Date 10/01/22 PT-OP-B Current Condition Start: 10/01/22 15:06 Freq: Status: Active Protocol: Document 10/01/22 13:30 DCW (Rec: 10/01/22 17:48 DC [id number]) Current Condition History of Current Condition Onset Date Long-standing history Current Complaints Poor posture, weakness, osteoporosis History of Current Condition Pt is a 72 year old female presenting with worsening posture and worries about recent osteoporosis diagnosis. Reports she often notices herself bent forward. Also has a life-long history of mild scoliosis, which she notes limits her flexibility, as well as rheumatoid arthritis, which really make me feel stiff all the time. Additionally, will occasionally hurt her low back , especially when bent over gardening, which most recently happened three weeks ago, but notes she has noticed improvement the past few days . Participates in an online weightlifting class, is worried that her osteoporosis will limit her ability to participate in her hobbies. Also enjoys trail walking, but is having a harder time recently due to back pain. PT-OP-C Subjective Start: 10/01/22 15:06 Freq: Status: Active Protocol: Document 10/01/22 13:30 DCW (Rec: 10/01/22 15:21 DCW [id number]) OP-PT Subjective Patient Comments Patient Comments Everyone keeps pointing out that I lean forward all the time. Patient Reported Progress Same OP-PT Pain Assessment Pain Assessment Grid Paper Pain Assessment Grid Completed Yes Location Left Lower Back Intensity 4 Scale Used Numeric (0 - 10) PT-OP-F Manual Assessment Start: 10/01/22 15:06 Freq: Status: Active Protocol: Document 10/01/22 13:30 DCW (Rec: 10/01/22 15:21 DCW [id number]) Manual Assessments Soft Tissue Assessment Soft Tissue Mobility Assessment Mild left lumbar paraspinal tightness Joint Mobility Assessment Joint Mobility Assessment Thoracic levoscoliosis, results in elevated right shoulder, slight rotation of upper trunk, at rest head is rotated R 4? PT-OP-J Posture/Palpation/Skin Start: 10/01/22 15:06 Freq: Status: Active Protocol: Document 10/01/22 13:30 DCW (Rec: 10/01/22 15:21 DCW [id number]) Posture Evaluation Position Standing Evaluation View Posterior Head/C-Spine Posture Forward Head T-Spine Posture Rotation Right,Fixed Scoliosis on (L) Shoulder Posture (L) Rounded,(R) Rounded Scapula Posture (L) Elevated,(R) Depressed PT-OP-K Range of Motion Start: 10/01/22 15:06 Freq: Status: Active Protocol: Document 10/01/22 13:30 DCW (Rec: 10/01/22 15:21 DCW [id number]) Cervical Spine Range of Motion Cervical Spine Active Degrees Testing Position Sitting Flexion 44 Extension 35 Rotation Left 44 Rotation Right 51 Lateral Flexion Left 20 Lateral Flexion Right 15 Lumbar Spine Range of Motion Lumbar Spine Active Degrees Testing Position Standing Flexion 55 Extension 5 Lateral Flexion Left 50 Lateral Flexion Right 47 Comments Lateral flexion measured in cm from fingertips to floor PT-OP-M Strength Start: 10/01/22 15:06 Freq: Status: Active Protocol: Document 10/01/22 13:30 DCW (Rec: 10/01/22 15:21 DCW [id number]) Hip Strength Hip Manual Muscle Testing Right Flexion (L2) 3+ Fair+ Abduction 4 Good Adduction 4 Good External Rotation 4 Good Internal Rotation 4 Good Left Flexion (L2) 3+ Fair+ Abduction 4 Good Adduction 4 Good External Rotation 4 Good Internal Rotation 4 Good Knee Strength Knee Manual Muscle Testing Right Flexion (S2) 4 Good Extension (L3) 4- Good- Left Flexion (S2) 4- Good- Extension (L3) 4 Good Ankle/Foot Strength Ankle and Foot Manual Muscle Testing Right Dorsiflexion (L4) 4+ Good+ Left Dorsiflexion (L4) 4+ Good+ PT-OP-Q Treatments Start: 10/01/22 15:06 Freq: Status: Active Protocol: Document 10/01/22 13:30 DCW (Rec: 10/01/22 15:21 DCW [id number]) Therapeutic Exercises Standing Exercises Rows Standing Exercise Name Rows Side bilateral Pec Stretch Standing Exercise Name Corner pec stretch Side bilateral Wall posture Standing Exercise Name Chin tuck against wall posture PT-OP-T Assessment and Plan Start: 10/01/22 15:06 Freq: Status: Active Protocol: Document 10/01/22 13:30 DCW (Rec: 10/01/22 17:48 DCW [id number]) Physical Therapy Assessment Rehab Potential Rehabilitation Potential Excellent Evaluation Complexity Number of Personal Factors/Comorbidities 1-2 Number of Body Systems Impaired 1-2 Clinical Presentation at Evaluation Stable Impairments Impairments Functional Activities, Functional Mobility,Pain, Posture,ROM,Strength Goals Three Impairment Pt demonstrates forward head/ rounded shoulder posture Spool Worker Goal (LTG) Pt to exhibit proper head and should posture 75% of the time without verbal cues. LTG Duration 12/01/22 Two Impairment Pt unable to fully participate in hobby of trail walking due to back pain Spool Worker Goal (LTG) Pt to return to trail walking with no limitations due to pain LTG Duration 12/01/22 One Impairment Pt does not have an appropriate home exercise program Short Term Goal (STG) Pt to be independent and compliant with an appropriate HEP STG Duration 10/31/22 Assessment Summary Assessment Pt presents with signs and symptoms consistent with referring diagnosis. 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 Posture worsened by long- standing scoliosis. Additionally displays decreased LE strength. Pt should benefit from skilled therapy focusing on posture training, flexibility, LE strengthening, as well as gentle strengthening to help decrease effects from osteoporosis Physical Therapy Plan Frequency and Duration Frequency of Treatment 2x/Week Plan of Care Start Date 10/01/22 Plan of Care End Date 12/01/22 Therapeutic Interventions Therapeutic Interventions Home Exercise Program,Joint Mobilizations,Manual Therapy, Orthotic/Prosthetic Management ,Patient/Caregiver Education, Soft Tissue Mobilization, Therapeutic Activities, Therapeutic Exercises Modalities Cold Pack/Ice Massage,Hot Packs Next Visit Focus/Plan Next Note Type Treatment Note Next Visit Plan Posture training, LE strengthening
--- NOTE | 2022-10-01 17:50 | PT.OPPOC ---
Physical, Occupational & Speech Therapy At [facility] Current Diagnoses Scoliosis, unspecified (10/01/22) Age-related osteoporosis without current pathological fracture (10/01/22) Abnormal posture (10/01/22) Visit Care Team Role Provider Type Adrian Moeller MD Primary Care Provider Physician Specialty: Internal Medicine Address: [address] [place] [address], [facility] Email: [email or web address] Mimi Arce DO Attending Provider Physician Family Provider Referring Provider Specialty: Family Practice Address: [address] [place] [address], [facility] [[email or web address] [address], [place], [address] Email: [email or web address] Plan Of Care PT-OP-T Assessment and Plan Start: 10/01/22 15:06 Freq: Status: Active Protocol: Document 10/01/22 13:30 DCW (Rec: 10/01/22 17:48 DCW [id number]) Physical Therapy Assessment Rehab Potential Rehabilitation Potential Excellent Evaluation Complexity Number of Personal Factors/Comorbidities 1-2 Number of Body Systems Impaired 1-2 Clinical Presentation at Evaluation Stable Impairments Impairments Functional Activities, Functional Mobility,Pain, Posture,ROM,Strength Goals Three Impairment Pt demonstrates forward head/ rounded shoulder posture Adjunct Latin Professor Goal (LTG) Pt to exhibit proper head and should posture 75% of the time without verbal cues. LTG Duration 12/01/22 Two Impairment Pt unable to fully participate in hobby of trail walking due to back pain Fdc Goal (LTG) Pt to return to trail walking with no limitations due to pain LTG Duration 12/01/22 One Impairment Pt does not have an appropriate home exercise program Short Term Goal (STG) Pt to be independent and compliant with an appropriate HEP STG Duration 10/31/22 Assessment Summary Assessment Pt presents with signs and symptoms consistent with referring diagnosis. 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 Posture worsened by long- standing scoliosis. Additionally displays decreased LE strength. Pt should benefit from skilled therapy focusing on posture training, flexibility, LE strengthening, as well as gentle strengthening to help decrease effects from osteoporosis Physical Therapy Plan Frequency and Duration Frequency of Treatment 2x/Week Plan of Care Start Date 10/01/22 Plan of Care End Date 12/01/22 Therapeutic Interventions Therapeutic Interventions Home Exercise Program,Joint Mobilizations,Manual Therapy, Orthotic/Prosthetic Management ,Patient/Caregiver Education, Soft Tissue Mobilization, Therapeutic Activities, Therapeutic Exercises Modalities Cold Pack/Ice Massage,Hot Packs Next Visit Focus/Plan Next Note Type Treatment Note Next Visit Plan Posture training, LE strengthening Plan of Care Dates Plan of Care Start Date 10/01/22 Plan of Care End Date 12/01/22 Electronically Signed by: Bjorn Jerome, PT 10/01/22 2517 If you are in agreement with this Plan of Care, please return a signed and dated copy. I have reviewed this Plan of Care and certify that the skilled therapy services above are required to meet the patient?s needs. Physician Signature Date Printed Name and Credentials Clinical Instructor Signature Printed Name and Credentials
--- NOTE | 2022-10-03 16:29 | PT.OTN ---
Current Diagnoses Scoliosis, unspecified (10/03/22) Age-related osteoporosis without current pathological fracture (10/03/22) Abnormal posture (10/03/22) Physical Therapy Treatment Note PT-OP-A Visit Information Start: 10/01/22 15:06 Freq: Status: Active Protocol: Document 10/03/22 15:45 DCW (Rec: 10/03/22 16:29 DCW [id number]) Out-Patient Physical Therapy Visit Information Visit Information Visit Type Treatment Note Visit Start Time 15:45 Visit Stop Time 16:30 Total Visit Minutes 45 Visit Number 2 Number of OR SCRUB TECH Visits 0 Evaluation Information Evaluation Date 10/01/22 PT-OP-B Current Condition Start: 10/01/22 15:06 Freq: Status: Active Protocol: Document 10/01/22 13:30 DCW (Rec: 10/01/22 17:48 DCW [id number]) Current Condition History of Current Condition Onset Date Long-standing history Current Complaints Poor posture, weakness, osteoporosis History of Current Condition Pt is a 72 year old female presenting with worsening posture and worries about recent osteoporosis diagnosis. Reports she often notices herself bent forward. Also has a life-long history of mild scoliosis, which she notes limits her flexibility, as well as rheumatoid arthritis, which really make me feel stiff all the time. Additionally, will occasionally hurt her low back , especially when bent over gardenening, which most recently happened three weeks ago, but notes she has noticed improvement the past few days . Participates in an online weightlifting class, is worried that her osteoporosis will limit her ability to participate in her hobbies. Also enjoys trail walking, but is having a harder time recently due to back pain. PT-OP-C Subjective Start: 10/01/22 15:06 Freq: Status: Active Protocol: Document 10/03/22 15:45 DCW (Rec: 10/03/22 16:29 DCW [id number]) OP-PT Subjective Patient Comments Patient Comments My back is way better. PT-OP-F Manual Assessment Start: 10/01/22 15:06 Freq: Status: Active Protocol: Document 10/01/22 13:30 DCW (Rec: 10/01/22 15:21 DCW [id number]) Manual Assessments Soft Tissue Assessment Soft Tissue Mobility Assessment Mild left lumbar paraspinal tightness Joint Mobility Assessment Joint Mobility Assessment Thoracic levoscoliosis, results in elevated right shoulder, slight rotation of upper trunk, at rest head is rotated R 4? PT-OP-J Posture/Palpation/Skin Start: 10/01/22 15:06 Freq: Status: Active Protocol: Document 10/01/22 13:30 DCW (Rec: 10/01/22 15:21 DCW [id number]) Posture Evaluation Position Standing Evaluation View Posterior Head/C-Spine Posture Forward Head T-Spine Posture Rotation Right,Fixed Scoliosis on (L) Shoulder Posture (L) Rounded,(R) Rounded Scapula Posture (L) Elevated,(R) Depressed PT-OP-K Range of Motion Start: 10/01/22 15:06 Freq: Status: Active Protocol: Document 10/01/22 13:30 DCW (Rec: 10/01/22 15:21 DCW [id number]) Cervical Spine Range of Motion Cervical Spine Active Degrees Testing Position Sitting Flexion 44 Extension 35 Rotation Left 44 Rotation Right 51 Lateral Flexion Left 20 Lateral Flexion Right 15 Lumbar Spine Range of Motion Lumbar Spine Active Degrees Testing Position Standing Flexion 55 Extension 5 Lateral Flexion Left 50 Lateral Flexion Right 47 Comments Lateral flexion measured in cm from fingertips to floor PT-OP-M Strength Start: 10/01/22 15:06 Freq: Status: Active Protocol: Document 10/01/22 13:30 DCW (Rec: 10/01/22 15:21 DCW [id number]) Hip Strength Hip Manual Muscle Testing Right Flexion (L2) 3+ Fair+ Abduction 4 Good Adduction 4 Good External Rotation 4 Good Internal Rotation 4 Good Left Flexion (L2) 3+ Fair+ Abduction 4 Good Adduction 4 Good External Rotation 4 Good Internal Rotation 4 Good Knee Strength Knee Manual Muscle Testing Right Flexion (S2) 4 Good Extension (L3) 4- Good- Left Flexion (S2) 4- Good- Extension (L3) 4 Good Ankle/Foot Strength Ankle and Foot Manual Muscle Testing Right Dorsiflexion (L4) 4+ Good+ Left Dorsiflexion (L4) 4+ Good+ PT-OP-Q Treatments Start: 10/01/22 15:06 Freq: Status: Active Protocol: Document 10/03/22 15:45 DCW (Rec: 10/03/22 16:29 DCW [id number]) Cardio Equipment Upper Body Ergometer (UBE) Duration (Minutes) 4 RPM 60 Seat Position 8 Height 3.5 Gym Equipment Shuttle Recovery Unilateral Squats Resistance 50# (one new) Shuttle Recovery Platform Stable Bilateral Squats Resistance 87# (two new) Shuttle Recovery Platform Stable Therapeutic Ball Resisted hip flexion Exercise Details Resisted hip/knee flexion Ball Size/Color Red - 55 cm [place] T-band Body Position Supine LTR Exercise Details LTR Ball Size/Color Red - 55 cm Body Position Supine Therapeutic Exercises Supine Exercises Chin tucks Supine Exercise Name Chin tucks Bridging Supine Exercise Name Bridging Side bilateral Horizontal Adduction Supine Exercise Name Horizontal Adduction Side bilateral Resistance 2# Serratus punch Supine Exercise Name Serratus punch Side bilateral Resistance 2# Pec Stretch Supine Exercise Name Supine on foam roll Standing Exercises Horizontal Abduction Standing Exercise Name Shoulder horizontla abduction Side bilateral Resistance Green Shoulder Extension Standing Exercise Name Shoulder Extension Side bilateral Resistance Green Rows Standing Exercise Name Rows Side bilateral Resistance Green PT-OP-T Assessment and Plan Start: 10/01/22 15:06 Freq: Status: Active Protocol: Document 10/03/22 15:45 DCW (Rec: 10/03/22 16:29 DCW [id number]) Physical Therapy Assessment Impairments Impairments Functional Activities, Functional Mobility,Pain, Posture,ROM,Strength Goals Three Impairment Pt demonstrates forward head/ rounded shoulder posture Executive Advisor Goal (LTG) Pt to exhibit proper head and should posture 75% of the time without verbal cues. LTG Duration 12/01/22 Two Impairment Pt unable to fully participate in hobby of trail walking due to back pain Penitentiary Goal (LTG) Pt to return to trail walking with no limitations due to pain LTG Duration 12/01/22 One Impairment Pt does not have an appropriate home exercise program Short Term Goal (STG) Pt to be independent and compliant with an appropriate HEP STG Duration 10/31/22 Assessment Summary Assessment Pt tolerated very well, preferred supine chin tucks to prior wall chin tucks, okayed to switch in HEP. [place], will work on independent HEP while gone. Physical Therapy Plan Frequency and Duration Frequency of Treatment 2x/Week Plan of Care Start Date 10/01/22 Plan of Care End Date 12/01/22 Therapeutic Interventions Therapeutic Interventions Home Exercise Program,Joint Mobilizations,Manual Therapy, Orthotic/Prosthetic Management ,Patient/Caregiver Education, Soft Tissue Mobilization, Therapeutic Activities, Therapeutic Exercises Modalities Cold Pack/Ice Massage,Hot Packs Next Visit Focus/Plan Next Note Type Treatment Note Next Visit Plan Posture training, LE strengthening
--- NOTE | 2022-11-05 10:16 | PT.OTN ---
Current Diagnoses Scoliosis, unspecified (11/05/22) Age-related osteoporosis without current pathological fracture (11/05/22) Abnormal posture (11/05/22) Physical Therapy Treatment Note PT-OP-A Visit Information Start: 10/01/22 15:06 Freq: Status: Active Protocol: Document 11/05/22 09:32 DCW (Rec: 11/05/22 10:16 DCW [id number]) Out-Patient Physical Therapy Visit Information Visit Information Visit Type Treatment Note Visit Start Time 09:32 Visit Stop Time 10:15 Total Visit Minutes 43 Visit Number 3 Number of RN RECRUITMENT Visits 0 Evaluation Information Evaluation Date 10/01/22 PT-OP-B Current Condition Start: 10/01/22 15:06 Freq: Status: Active Protocol: Document 10/01/22 13:30 DCW (Rec: 10/01/22 17:48 DCW [id number]) Current Condition History of Current Condition Onset Date Long-standing history Current Complaints Poor posture, weakness, osteoporosis History of Current Condition Pt is a 72 year old female presenting with worsening posture and worries about recent osteoporosis diagnosis. Reports she often notices herself bent forward. Also has a life-long history of mild scoliosis, which she notes limits her flexibility, as well as rheumatoid arthritis, which really make me feel stiff all the time. Additionally, will occasionally hurt her low back , especially when bent over gardenening, which most recently happened three weeks ago, but notes she has noticed improvement the past few days . Participates in an online weightlifting class, is worried that her osteoporosis will limit her ability to participate in her hobbies. Also enjoys trail walking, but is having a harder time recently due to back pain. PT-OP-C Subjective Start: 10/01/22 15:06 Freq: Status: Active Protocol: Document 11/05/22 09:32 DCW (Rec: 11/05/22 10:16 DCW [id number]) OP-PT Subjective Patient Comments Patient Comments I haven't been good with my exercises. PT-OP-F Manual Assessment Start: 10/01/22 15:06 Freq: Status: Active Protocol: Document 10/01/22 13:30 DCW (Rec: 10/01/22 15:21 DCW [id number]) Manual Assessments Soft Tissue Assessment Soft Tissue Mobility Assessment Mild left lumbar paraspinal tightness Joint Mobility Assessment Joint Mobility Assessment Thoracic levoscoliosis, results in elevated right shoulder, slight rotation of upper trunk, at rest head is rotated R 4? PT-OP-J Posture/Palpation/Skin Start: 10/01/22 15:06 Freq: Status: Active Protocol: Document 10/01/22 13:30 DCW (Rec: 10/01/22 15:21 DCW [id number]) Posture Evaluation Position Standing Evaluation View Posterior Head/C-Spine Posture Forward Head T-Spine Posture Rotation Right,Fixed Scoliosis on (L) Shoulder Posture (L) Rounded,(R) Rounded Scapula Posture (L) Elevated,(R) Depressed PT-OP-K Range of Motion Start: 10/01/22 15:06 Freq: Status: Active Protocol: Document 10/01/22 13:30 DCW (Rec: 10/01/22 15:21 DCW [id number]) Cervical Spine Range of Motion Cervical Spine Active Degrees Testing Position Sitting Flexion 44 Extension 35 Rotation Left 44 Rotation Right 51 Lateral Flexion Left 20 Lateral Flexion Right 15 Lumbar Spine Range of Motion Lumbar Spine Active Degrees Testing Position Standing Flexion 55 Extension 5 Lateral Flexion Left 50 Lateral Flexion Right 47 Comments Lateral flexion measured in cm from fingertips to floor PT-OP-M Strength Start: 10/01/22 15:06 Freq: Status: Active Protocol: Document 10/01/22 13:30 DCW (Rec: 10/01/22 15:21 DCW [id number]) Hip Strength Hip Manual Muscle Testing Right Flexion (L2) 3+ Fair+ Abduction 4 Good Adduction 4 Good External Rotation 4 Good Internal Rotation 4 Good Left Flexion (L2) 3+ Fair+ Abduction 4 Good Adduction 4 Good External Rotation 4 Good Internal Rotation 4 Good Knee Strength Knee Manual Muscle Testing Right Flexion (S2) 4 Good Extension (L3) 4- Good- Left Flexion (S2) 4- Good- Extension (L3) 4 Good Ankle/Foot Strength Ankle and Foot Manual Muscle Testing Right Dorsiflexion (L4) 4+ Good+ Left Dorsiflexion (L4) 4+ Good+ PT-OP-Q Treatments Start: 10/01/22 15:06 Freq: Status: Active Protocol: Document 11/05/22 09:32 DCW (Rec: 11/05/22 10:16 DCW [id number]) Cardio Equipment Upper Body Ergometer (UBE) Duration (Minutes) 4 RPM 60 Seat Position 8 Height 3.5 Gym Equipment Shuttle Recovery Unilateral Squats Resistance 50# (one new) Shuttle Recovery Platform Stable Bilateral Squats Resistance 87# (two new) Shuttle Recovery Platform Stable Therapeutic Ball LTR Exercise Details LTR Ball Size/Color Red - 55 cm Body Position Supine Therapeutic Exercises Supine Exercises Chin tucks Supine Exercise Name Chin tucks Reps/Minutes 5 hold x10 Bridging Supine Exercise Name Bridging Reps/Minutes x15 Horizontal Adduction Supine Exercise Name Horizontal Adduction Side bilateral Resistance 2# Serratus punch Supine Exercise Name Serratus punch Side bilateral Resistance 2# Standing Exercises Pallof Press Standing Exercise Name Pallof Press Side bilateral Resistance Green Horizontal Abduction Standing Exercise Name Shoulder horizontal abduction Side bilateral Resistance Green Shoulder Extension Standing Exercise Name Shoulder Extension Side bilateral Resistance Green Rows Standing Exercise Name Rows Side bilateral Resistance Green Other Exercises Resisted Ambulation Other Exercise Name Resisted Side-stepping PT-OP-T Assessment and Plan Start: 10/01/22 15:06 Freq: Status: Active Protocol: Document 11/05/22 09:32 DCW (Rec: 11/05/22 10:16 DCW [id number]) Physical Therapy Assessment Impairments Impairments Functional Activities, Functional Mobility,Pain, Posture,ROM,Strength Goals Three Impairment Pt demonstrates forward head/ rounded shoulder posture Road Grader Goal (LTG) Pt to exhibit proper head and should posture 75% of the time without verbal cues. LTG Duration 12/01/22 Two Impairment Pt unable to fully participate in hobby of trail walking due to back pain Road Grader Goal (LTG) Pt to return to trail walking with no limitations due to pain LTG Duration 12/01/22 One Impairment Pt does not have an appropriate home exercise program Short Term Goal (STG) Pt to be independent and compliant with an appropriate HEP STG Duration 10/31/22 Assessment Summary Assessment Pt performed minimal activity over her month hiatus from PT, tolerated today's treatment well. Showing good progress with hip strengthening. Physical Therapy Plan Frequency and Duration Frequency of Treatment 2x/Week Plan of Care Start Date 10/01/22 Plan of Care End Date 12/01/22 Therapeutic Interventions Therapeutic Interventions Home Exercise Program,Joint Mobilizations,Manual Therapy, Orthotic/Prosthetic Management ,Patient/Caregiver Education, Soft Tissue Mobilization, Therapeutic Activities, Therapeutic Exercises Modalities Cold Pack/Ice Massage,Hot Packs Next Visit Focus/Plan Next Note Type Treatment Note Next Visit Plan Posture training, LE strengthening
--- NOTE | 2022-11-13 10:13 | PT.OTN ---
Current Diagnoses Scoliosis, unspecified (11/13/22) Age-related osteoporosis without current pathological fracture (11/13/22) Abnormal posture (11/13/22) Physical Therapy Treatment Note PT-OP-A Visit Information Start: 10/01/22 15:06 Freq: Status: Active Protocol: Document 11/13/22 09:31 DCW (Rec: 11/13/22 10:13 DCW [id number]) Out-Patient Physical Therapy Visit Information Visit Information Visit Type Treatment Note Visit Start Time 09:31 Visit Stop Time 10:15 Total Visit Minutes 44 Visit Number 4 Number of GRID MOLDER Visits 0 Evaluation Information Evaluation Date 10/01/22 PT-OP-B Current Condition Start: 10/01/22 15:06 Freq: Status: Active Protocol: Document 10/01/22 13:30 DCW (Rec: 10/01/22 17:48 DCW [id number]) Current Condition History of Current Condition Onset Date Long-standing history Current Complaints Poor posture, weakness, osteoporosis History of Current Condition Pt is a 72 year old female presenting with worsening posture and worries about recent osteoporosis diagnosis. Reports she often notices herself bent forward. Also has a life-long history of mild scoliosis, which she notes limits her flexibility, as well as rheumatoid arthritis, which really make me feel stiff all the time. Additionally, will occasionally hurt her low back , especially when bent over gardenening, which most recently happened three weeks ago, but notes she has noticed improvement the past few days . Participates in an online weightlifting class, is worried that her osteoporosis will limit her ability to participate in her hobbies. Also enjoys trail walking, but is having a harder time recently due to back pain. PT-OP-C Subjective Start: 10/01/22 15:06 Freq: Status: Active Protocol: Document 11/13/22 09:31 DCW (Rec: 11/13/22 10:13 DCW [id number]) OP-PT Subjective Patient Comments Patient Comments I could be doing a lot more at home. PT-OP-F Manual Assessment Start: 10/01/22 15:06 Freq: Status: Active Protocol: Document 10/01/22 13:30 DCW (Rec: 10/01/22 15:21 DCW [id number]) Manual Assessments Soft Tissue Assessment Soft Tissue Mobility Assessment Mild left lumbar paraspinal tightness Joint Mobility Assessment Joint Mobility Assessment Thoracic levoscoliosis, results in elevated right shoulder, slight rotation of upper trunk, at rest head is rotated R 4? PT-OP-J Posture/Palpation/Skin Start: 10/01/22 15:06 Freq: Status: Active Protocol: Document 10/01/22 13:30 DCW (Rec: 10/01/22 15:21 DCW [id number]) Posture Evaluation Position Standing Evaluation View Posterior Head/C-Spine Posture Forward Head T-Spine Posture Rotation Right,Fixed Scoliosis on (L) Shoulder Posture (L) Rounded,(R) Rounded Scapula Posture (L) Elevated,(R) Depressed PT-OP-K Range of Motion Start: 10/01/22 15:06 Freq: Status: Active Protocol: Document 10/01/22 13:30 DCW (Rec: 10/01/22 15:21 DCW [id number]) Cervical Spine Range of Motion Cervical Spine Active Degrees Testing Position Sitting Flexion 44 Extension 35 Rotation Left 44 Rotation Right 51 Lateral Flexion Left 20 Lateral Flexion Right 15 Lumbar Spine Range of Motion Lumbar Spine Active Degrees Testing Position Standing Flexion 55 Extension 5 Lateral Flexion Left 50 Lateral Flexion Right 47 Comments Lateral flexion measured in cm from fingertips to floor PT-OP-M Strength Start: 10/01/22 15:06 Freq: Status: Active Protocol: Document 10/01/22 13:30 DCW (Rec: 10/01/22 15:21 DCW [id number]) Hip Strength Hip Manual Muscle Testing Right Flexion (L2) 3+ Fair+ Abduction 4 Good Adduction 4 Good External Rotation 4 Good Internal Rotation 4 Good Left Flexion (L2) 3+ Fair+ Abduction 4 Good Adduction 4 Good External Rotation 4 Good Internal Rotation 4 Good Knee Strength Knee Manual Muscle Testing Right Flexion (S2) 4 Good Extension (L3) 4- Good- Left Flexion (S2) 4- Good- Extension (L3) 4 Good Ankle/Foot Strength Ankle and Foot Manual Muscle Testing Right Dorsiflexion (L4) 4+ Good+ Left Dorsiflexion (L4) 4+ Good+ PT-OP-Q Treatments Start: 10/01/22 15:06 Freq: Status: Active Protocol: Document 11/13/22 09:31 DCW (Rec: 11/13/22 10:13 DCW [id number]) Cardio Equipment Upper Body Ergometer (UBE) Duration (Minutes) 6 RPM 60 Seat Position 8 Height 3.5 Gym Equipment Shuttle Recovery Unilateral Squats Resistance 50# (two new) Shuttle Recovery Platform Stable Bilateral Squats Resistance 87# (three new) Shuttle Recovery Platform Stable Therapeutic Ball Resisted hip flexion Exercise Details Resisted hip/knee flexion Ball Size/Color Red - 55 cm Hood T-band Body Position Supine LTR Exercise Details LTR Ball Size/Color Red - 55 cm Body Position Supine Therapeutic Exercises Standing Exercises Hip Extension Standing Exercise Name Hip Extension Side bilateral Resistance Green Pallof Press Standing Exercise Name Pallof Press Side bilateral Resistance Green Shoulder Extension Standing Exercise Name Shoulder Extension Side bilateral Resistance Green Rows Standing Exercise Name Rows Side bilateral Resistance Green Pec Stretch Standing Exercise Name Corner pec stretch Side bilateral Other Exercises Resisted Ambulation Other Exercise Name Resisted Side-stepping Resistance Green PT-OP-T Assessment and Plan Start: 10/01/22 15:06 Freq: Status: Active Protocol: Document 11/13/22 09:31 DCW (Rec: 11/13/22 10:13 DCW [id number]) Physical Therapy Assessment Impairments Impairments Functional Activities, Functional Mobility,Pain, Posture,ROM,Strength Goals Three Impairment Pt demonstrates forward head/ rounded shoulder posture Qa Software Test Engineer Goal (LTG) Pt to exhibit proper head and should posture 75% of the time without verbal cues. LTG Duration 12/01/22 Two Impairment Pt unable to fully participate in hobby of trail walking due to back pain Detention Goal (LTG) Pt to return to trail walking with no limitations due to pain LTG Duration 12/01/22 One Impairment Pt does not have an appropriate home exercise program Short Term Goal (STG) Pt to be independent and compliant with an appropriate HEP STG Duration 10/31/22 Assessment Summary Assessment Therapist stressed again importance of HEP, patient noted she will work on being more compliant. Noted some muscle-related soreness with resisted side stepping and leg press, admitted it was more of a my muscles are used to doing this soreness. Physical Therapy Plan Frequency and Duration Frequency of Treatment 2x/Week Plan of Care Start Date 10/01/22 Plan of Care End Date 12/01/22 Therapeutic Interventions Therapeutic Interventions Home Exercise Program,Joint Mobilizations,Manual Therapy, Orthotic/Prosthetic Management ,Patient/Caregiver Education, Soft Tissue Mobilization, Therapeutic Activities, Therapeutic Exercises Modalities Cold Pack/Ice Massage,Hot Packs Next Visit Focus/Plan Next Note Type Treatment Note Next Visit Plan Posture training, LE strengthening
--- NOTE | 2022-12-31 11:07 | PT.OPDS ---
Current Diagnoses Scoliosis, unspecified (11/13/22) Age-related osteoporosis without current pathological fracture (11/13/22) Abnormal posture (11/13/22) Visit Care Team Role Provider Type Adrian Moeller MD Primary Care Provider Physician Specialty: Internal Medicine Address: [address] [place] [address], [facility] Email: [email or web address] Mimi Arce DO Attending Provider Physician Family Provider Referring Provider Specialty: Family Practice Address: [address] [place] [address], [facility] Email: [email or web address] Visit Number Visit Number 4 Discharge Summary PT-OP-B Current Condition Start: 10/01/22 15:06 Freq: Status: Active Protocol: Document 10/01/22 13:30 DCW (Rec: 10/01/22 17:48 DCW [id number]) Current Condition History of Current Condition Onset Date Long-standing history Current Complaints Poor posture, weakness, osteoporosis History of Current Condition Pt is a 72 year old female presenting with worsening posture and worries about recent osteoporosis diagnosis. Reports she often notices herself bent forward. Also has a life-long history of mild scoliosis, which she notes limits her flexibility, as well as rheumatoid arthritis, which really make me feel stiff all the time. Additionally, will occasionally hurt her low back , especially when bent over gardenening, which most recently happened three weeks ago, but notes she has noticed improvement the past few days . Participates in an online weightlifting class, is worried that her osteoporosis will limit her ability to participate in her hobbies. Also enjoys trail walking, but is having a harder time recently due to back pain. PT-OP-C Subjective Start: 10/01/22 15:06 Freq: Status: Active Protocol: Document 11/13/22 09:31 DCW (Rec: 11/13/22 10:13 DCW [id number]) OP-PT Subjective Patient Comments Patient Comments I could be doing a lot more at home. PT-OP-F Manual Assessment Start: 10/01/22 15:06 Freq: Status: Active Protocol: Document 10/01/22 13:30 DCW (Rec: 10/01/22 15:21 DCW [id number]) Manual Assessments Soft Tissue Assessment Soft Tissue Mobility Assessment Mild left lumbar paraspinal tightness Joint Mobility Assessment Joint Mobility Assessment Thoracic levoscoliosis, results in elevated right shoulder, slight rotation of upper trunk, at rest head is rotated R 4? PT-OP-J Posture/Palpation/Skin Start: 10/01/22 15:06 Freq: Status: Active Protocol: Document 10/01/22 13:30 DCW (Rec: 10/01/22 15:21 DCW [id number]) Posture Evaluation Position Standing Evaluation View Posterior Head/C-Spine Posture Forward Head T-Spine Posture Rotation Right,Fixed Scoliosis on (L) Shoulder Posture (L) Rounded,(R) Rounded Scapula Posture (L) Elevated,(R) Depressed PT-OP-K Range of Motion Start: 10/01/22 15:06 Freq: Status: Active Protocol: Document 10/01/22 13:30 DCW (Rec: 10/01/22 15:21 DCW [id number]) Cervical Spine Range of Motion Cervical Spine Active Degrees Testing Position Sitting Flexion 44 Extension 35 Rotation Left 44 Rotation Right 51 Lateral Flexion Left 20 Lateral Flexion Right 15 Lumbar Spine Range of Motion Lumbar Spine Active Degrees Testing Position Standing Flexion 55 Extension 5 Lateral Flexion Left 50 Lateral Flexion Right 47 Comments Lateral flexion measured in cm from fingertips to floor PT-OP-M Strength Start: 10/01/22 15:06 Freq: Status: Active Protocol: Document 10/01/22 13:30 DCW (Rec: 10/01/22 15:21 DCW [id number]) Hip Strength Hip Manual Muscle Testing Right Flexion (L2) 3+ Fair+ Abduction 4 Good Adduction 4 Good External Rotation 4 Good Internal Rotation 4 Good Left Flexion (L2) 3+ Fair+ Abduction 4 Good Adduction 4 Good External Rotation 4 Good Internal Rotation 4 Good Knee Strength Knee Manual Muscle Testing Right Flexion (S2) 4 Good Extension (L3) 4- Good- Left Flexion (S2) 4- Good- Extension (L3) 4 Good Ankle/Foot Strength Ankle and Foot Manual Muscle Testing Right Dorsiflexion (L4) 4+ Good+ Left Dorsiflexion (L4) 4+ Good+ PT-OP-T Assessment and Plan Start: 10/01/22 15:06 Freq: Status: Active Protocol: Document 12/31/22 11:06 DCW (Rec: 12/31/22 11:07 DCW [id number]) Physical Therapy Assessment Goals Three Impairment Pt demonstrates forward head/ rounded shoulder posture Halfway Goal (LTG) Pt to exhibit proper head and should posture 75% of the time without verbal cues. LTG Duration 12/01/22 Two Impairment Pt unable to fully participate in hobby of trail walking due to back pain Halfway Goal (LTG) Pt to return to trail walking with no limitations due to pain LTG Duration 12/01/22 One Impairment Pt does not have an appropriate home exercise program Short Term Goal (STG) Pt to be independent and compliant with an appropriate HEP STG Duration 10/31/22 Assessment Summary Assessment Pt has not been seen in more than a month and a half, her POC has . Pt discharged from skilled PT at this time, will require a new referral in order to return. Physical Therapy Plan Frequency and Duration Frequency of Treatment 2x/Week Plan of Care Start Date 10/01/22 Plan of Care End Date 12/01/22 Discharge Physical Therapy Discharge Reasons No Longer Attending PT Next Visit Focus/Plan Next Note Type Discharge Summary
== END 2023-01-02 15:48 | disposition home or self-care (01) ==
LOC: PHYS 09:30
PROVIDERS: Family Provider Family Medicine; PCP Internal Medicine; Referring Provider Family Medicine; Visit Provider Family Medicine
DX: M81.0 Age-related osteoporosis without current pathological fracture (principal); R29.3 Abnormal posture; M41.9 Scoliosis, unspecified
CPT/HCPCS: 97110; 97161

== ENCOUNTER → 2022-11-28 08:13 | Outpatient (CLI) | payer MEDICARE, OTHER, SELFPAY ==
[2022-11-28 08:58] LABS: Cholesterol 253 mg/dL (140-199); Glucose 84 mg/dL (80-110); HDL Cholesterol 96 mg/dL (40-60); LDL Cholesterol Calculated 140 mg/dL (<100); Triglycerides 83 mg/dL (35-150)
== END ==
PROVIDERS: Family Provider Family Medicine; PCP Internal Medicine; Referring Provider Internal Medicine; Visit Provider Internal Medicine
DX: E78.2 Mixed hyperlipidemia (principal)
CPT/HCPCS: 36415; 80061; 82947

== ENCOUNTER → 2023-05-07 12:24 | Outpatient (CLI) | payer MEDICARE, OTHER, SELFPAY ==
[2023-05-07 13:46] LABS: Alanine Aminotransferase 17 IU/L (<35); Albumin 4.7 g/dL (3.5-5.0); Albumin Globulin Ratio 1.2 (1.0-2.8); Alkaline Phosphatase 63 U/L (38-126); Aspartate Aminotransferase 30 IU/L (14-36); BUN Creatinine Ratio 24.7 (6-22); Bilirubin Total 0.6 mg/dL (0.2-1.3); Blood Urea Nitrogen 20 mg/dL (7-17); Calcium 10.2 mg/dL (8.4-10.2); Carbon Dioxide 28 mmol/L (22-32); Chloride 101 mmol/L (98-107); Estimated Glomerular Filt Rate > 60 mL/min (>60); Globulin 3.8 g/dL (1.7-4.1); Glucose 86 mg/dL (80-110); HEMOLYSIS < 15 (0-50); Potassium 4.2 mmol/L (3.4-5.1); Sodium 139 mmol/L (137-145); Total Protein 8.5 g/dL (6.3-8.2)
== END ==
PROVIDERS: Family Provider Family Medicine; PCP Internal Medicine; Referring Provider Internal Medicine; Visit Provider Internal Medicine
DX: M81.0 Age-related osteoporosis without current pathological fracture (principal); Z51.81 Encounter for therapeutic drug level monitoring; Z79.83 Long term (current) use of bisphosphonates
CPT/HCPCS: 36415; 80053

== ENCOUNTER → 2023-05-19 11:27 | Outpatient (CLI) | payer MEDICARE, OTHER, SELFPAY ==
--- NOTE | 2023-05-19 11:29 | DI.RAD.S_ITS ---
PROCEDURE: XR WRIST LT MIN 3V INDICATIONS: left wrist pain (no trauma) TECHNIQUE: 3 views of the wrist were acquired. COMPARISON: None. FINDINGS: Bones: Decreased mineralization. No acute or subacute fractures. Normal bone alignment. Soft tissues: No suspicious soft tissue calcifications. IMPRESSION: 1. Decreased mineralization without radiographic evidence of acute abnormality. Dictated by: Danita Berry M.D. on 05/19/2023 at 13:16 Approved by: Danita Berry M.D. on 05/19/2023 at 13:17
== END ==
LOC: RAD 11:28
PROVIDERS: Family Provider Family Medicine; PCP Internal Medicine; Referring Provider Internal Medicine; Visit Provider Internal Medicine
DX: M25.532 Pain in left wrist (principal)
CPT/HCPCS: 73110

== ENCOUNTER → 2023-12-26 09:15 | Outpatient (CLI) | payer MEDICARE, OTHER, SELFPAY ==
[2023-12-26 10:33] LABS: Alanine Aminotransferase 16 IU/L (<35); Albumin 4.4 g/dL (3.5-5.0); Albumin Globulin Ratio 1.4 (1.0-2.8); Alkaline Phosphatase 48 U/L (38-126); Aspartate Aminotransferase 30 IU/L (14-36); BUN Creatinine Ratio 21.7 (6-22); Bilirubin Total 0.5 mg/dL (0.2-1.3); Blood Urea Nitrogen 15 mg/dL (7-17); Calcium 9.4 mg/dL (8.4-10.2); Carbon Dioxide 28 mmol/L (22-32); Chloride 102 mmol/L (98-107); Cholesterol 272 mg/dL (140-199); Estimated Glomerular Filt Rate > 60 mL/min (>60); Globulin 3.1 g/dL (1.7-4.1); Glucose 83 mg/dL (80-110); HDL Cholesterol 102 mg/dL (40-60); HEMOLYSIS < 15 (0-50); LDL Cholesterol Calculated 159 mg/dL (<100); Sodium 138 mmol/L (137-145); Total Protein 7.5 g/dL (6.3-8.2); Triglycerides 55 mg/dL (35-150)
== END ==
PROVIDERS: Family Provider Family Medicine; PCP Internal Medicine; Referring Provider Internal Medicine; Visit Provider Internal Medicine
DX: M81.0 Age-related osteoporosis without current pathological fracture (principal); E78.2 Mixed hyperlipidemia; M06.9 Rheumatoid arthritis, unspecified; E03.9 Hypothyroidism, unspecified
CPT/HCPCS: 36415; 80053; 80061; 84443

== ENCOUNTER → 2024-09-02 16:03 | Outpatient (CLI) | payer MEDICARE, OTHER, SELFPAY ==
[2024-09-02 17:18] LABS: Hematocrit 33.8 % (36-46); Hemoglobin 11.4 g/dL (12.0-16.0); Mean Corpuscular HGB Conc 33.6 % (30-36); Mean Corpuscular Hemoglobin 29.6 PG (26-34); Mean Corpuscular Volume 87.9 fL (80-100); Platelet Count 208 X10^3/uL (150-400); Red Blood Cell Count 3.84 X10^6/uL (4.0-5.2); Red Cell Distribution Width 13.8 % (11.6-14.8); White Blood Cell Count 4.1 X10^3/uL (4.5-11.0)
[2024-09-02 17:30] LABS: HEMOLYSIS < 15 (0-50); Iron 62 ug/dL (37-170)
[2024-09-02 17:44] LABS: Percent Iron Saturation 26 % (15-50); Total Iron Binding Capacity 241 ug/dL (265-497); Transferrin 201 mg/dL (206-381)
[2024-09-02 18:04] LABS: Ferritin 65 ng/mL (11-264)
== END ==
LOC: LAB 16:06
PROVIDERS: Family Provider Family Medicine; PCP Internal Medicine; Referring Provider Internal Medicine; Visit Provider Internal Medicine
DX: K90.0 Celiac disease (principal); K58.0 Irritable bowel syndrome with diarrhea
CPT/HCPCS: 82728; 83516; 83540; 83550; 85027

== ENCOUNTER → 2024-12-06 14:36 | Outpatient (CLI) | payer MEDICARE, OTHER, SELFPAY ==
--- NOTE | 2024-12-06 14:38 | DI.RAD.S_ITS ---
PROCEDURE: XR DEXA AXIAL SKELETON INDICATIONS: osteoporosis COMPARISON: [facility], , XR DEXA AXIAL SKELETON, 06/17/2022, 14:48. FINDINGS: Lumbar Spine (L1-L3): Bone mineral density 0.902 g/cm2, T score -1.1. Prior DEXA was performed using dissimilar scan type or analysis method. Left Femoral Neck: Bone mineral density 0.546 g/cm2, T score -2.7. Left Hip: Bone mineral density 0.735 g/cm2, T score -1.7. Prior DEXA was performed using dissimilar scan type or analysis method. Fracture Risk Calculation (when applicable): FRAX score not reported due to T-score less than -2.5. (T score greater or equal to -1.0 to: NORMAL) (T score from -1.1 to -2.4: OSTEOPENIA) (T score less than or equal to -2.5: OSTEOPOROSIS) IMPRESSION: By WHO criteria, patient has osteoporosis. Follow-up guidelines as follows: Osteoporosis: Consider a repeat DEXA and Vertebral Fracture Assessment (VFA) exam in 2 years or sooner if medically necessary, to reassess this patient's status. Osteopenia: Consider a repeat DEXA in 2-3 years to reassess this patient's status, or if there is a new clinical indication. Normal: Consider a repeat DEXA in 5 years or sooner, or if there is a new clinical indication. All treatment decisions require clinical judgment and consideration of individual patient factors, including patient preferences, comorbidities, previous drug use, risk factors not captured in the FRAX model (e.g., frailty, falls, vitamin D deficiency, increased bone turnover, interval significant decline in bone density ) and possible under- or over-estimation of fracture risk by FRAX. In addition, the NOF Guide recommends that FDA-approved medical therapies be considered in postmenopausal women and men age >= 50 years with a: * Hip or vertebral (clinical or morphometric) fracture * T-score of <=-2.5 at the spine or hip * Ten-year fracture probability by FRAX of >= 3% for hip fracture or >=20% for major osteoporotic fracture. Approved by: Joel Xie M.D. on 12/06/2024 at 21:31
== END ==
LOC: RAD 14:37
PROVIDERS: Family Provider Family Medicine; PCP Internal Medicine; Referring Provider Internal Medicine; Visit Provider Internal Medicine
DX: M81.0 Age-related osteoporosis without current pathological fracture (principal)
CPT/HCPCS: 77080